=== PATIENT | female | born 1990 | race Caucasian/White ===

== ENCOUNTER → 2018-11-12 13:27 | Outpatient (CLI) | payer MEDICAID, SELFPAY ==
--- NOTE | 2018-11-12 14:44 | MM_ITS ---
MM Dig mamm DX unilat RT CAD, US breast RT complete INDICATION: Palpable lesion in the lower inner aspect of the right breast. ORDERING PHYSICIAN: [facility] PATIENT AGE: 28 years COMPARISON: None TECHNIQUE: Right mammogram with spot compression views and right breast ultrasound with axilla FINDINGS: Ultrasound initially performed demonstrates a 9 x 8 mm slightly hypoechoic nodule within the 5:00 region of the right breast. The nodule is homogeneous with some enhanced through transmission sound and may represent a fibroadenoma. The lateral pate are however somewhat ill-defined. Right-sided mammogram: Average to dense fibroglandular tissue noted. 8 mm somewhat ill-defined nodular opacity is noted in the lower aspect of the right breast at the region of the palpable abnormality. Is not well delineated on the cc view. No malignant appearing microcalcifications evident. IMPRESSION: There is a 9 x 8 mm hypoechoic nodule in the 5:00 region corresponding to the palpable abnormality. This is likely related to a fibroadenoma however, there are some atypical features. Therefore, biopsy is suggested. Suggest core biopsy with sonographic guidance BI-RADS Category: 4 Suspicious Abnormality-Biopsy Considered RECOMMENDED FOLLOW-UP: BIO - BIOPSY RECOMMENDED (A letter has been sent to the patient regarding results of the study.)
== END ==
PROVIDERS: Visit Provider Nurse Practitioner Obstetrics & Gynecology
DX: N63.10 Unspecified lump in the right breast, unspecified quadrant (principal)
CPT/HCPCS: 76641; 77065

== ENCOUNTER → 2018-11-25 17:40 | Outpatient (CLI) | payer MEDICAID, SELFPAY ==
[2018-11-25 17:52] LABS: Urine Pregnancy, HCG Qual. Negative (Negative)
== END ==
PROVIDERS: Visit Provider Surgery
DX: N63.10 Unspecified lump in the right breast, unspecified quadrant (principal)
CPT/HCPCS: 81025

== ENCOUNTER → 2018-11-27 09:33 | Outpatient (CLI) | payer MEDICAID, SELFPAY ==
--- NOTE | 2018-11-27 09:37 | US_ITS ---
FNA w guidance, US breast RT limited HISTORY: ITS.REASON: RT BREAST NODULE ORDERING PHYSICIAN: Mairo Stevens MD PATIENT AGE: 28 years COMPARISON: 11/12/2018 Prebiopsy ultrasound: Ultrasound performed of the area of interest demonstrates a 1 cm hypoechoic nodule which is once again noted with some enhanced through transmission of sound. Biopsy planning was performed TECHNIQUE: Following obtaining informed consent, using aseptic technique and local anesthesia with buffered lidocaine, fine-needle aspiration was performed of the nodule of interest using sonographic guidance. One pass was made into the nodule with a 25-gauge needle and 2 passes with a 21-gauge needle. Specimen was given to cytology. The patient tolerated the procedure well without evidence of immediate complications and left the ultrasound suite in stable condition. CYTOLOGY:Adipose tissue only, negative for malignant cells IMPRESSION: FNA of the right breast nodule is negative for malignancy. Adipose tissue only identified. Suggest 3-6 month sonographic follow-up to confirm short-term stability
== END ==
PROVIDERS: PCP Nurse Practitioner Obstetrics & Gynecology; Visit Provider Surgery
DX: N63.10 Unspecified lump in the right breast, unspecified quadrant (principal)
CPT/HCPCS: 10005; 76642

== ENCOUNTER → 2019-02-19 17:53 | Outpatient (CLI) | payer MEDICAID, SELFPAY ==
[2019-02-19 18:08] LABS: Basophils % 0.4 % (0.1-2.0); Eosinophils # 0.1 K/mm3 (0.0-0.4); Eosinophils % 1.3 % (0.1-12.0); Hematocrit 42.9 % (37.0-47.0); Hemoglobin 14.7 g/dL (12.2-16.2); Lymphocytes # 2.3 K/mm3 (0.7-4.5); Lymphocytes % 23.6 % (10-50); Mean Corpuscular HGB Conc 34.4 g/dL (31.8-35.4); Mean Corpuscular Hemoglobin 29.7 pg (27.0-31.2); Mean Corpuscular Volume 86.3 fl (81-99); Mean Platelet Volume 6.5 fl (7.4-10.4); Monocytes # 0.5 K/mm3 (0.1-1.0); Monocytes % 4.8 % (1.7-9.3); Neutrophils # 6.9 K/mm3 (1.8-7.8); Neutrophils % 69.9 % (37.0-80.0); Platelet Count 264 K/mm3 (142-424); Red Blood Count 4.97 M/mm3 (4.20-5.40); Red Cell Distribution Width 12.8 % (11.5-17.5); White Blood Count 9.9 K/mm3 (4.8-10.8)
[2019-02-19 20:01] LABS: Alanine Aminotransferase 25 U/L (12-78); Albumin Level 4.4 gm/dL (3.4-5.0); Albumin/Globulin Ratio 1.3 (1.1-1.8); Alkaline Phosphatase 54 U/L (46-116); Aspartate Amino Transferase 9 U/L (15-37); Bilirubin,Total 0.4 mg/dL (0.2-1.0); Blood Urea Nitrogen 17 mg/dL (7-18); Calcium 9.7 mg/dL (8.5-10.1); Carbon Dioxide 29 mmol/L (21.0-32.0); Chloride 104 mmol/L (98-107); Creatinine,Serum 0.85 mg/dL (0.55-1.02); Estimated Glomerular Filt Rate 81 ml/min (>60); GFR (African American) 98 ML/MIN (>60); Globulin 3.5 gm/dl (1.3-3.2); Glucose 72 mg/dL (74-106); Sodium 142 mmol/L (136-145); T4 (Thyroxine) 8.1 ug/dl (4.7-13.3); Thyroid Stimulating Hormone 0.54 uIU/ml (0.358-3.740); Total Protein,Serum 7.9 gm/dL (6.4-8.2)
[2019-02-21 17:57] LABS: Peripheral Smear Review Scanned Result
== END ==
PROVIDERS: Visit Provider Nurse Practitioner Family
DX: E04.9 Nontoxic goiter, unspecified (principal); R59.0 Localized enlarged lymph nodes
CPT/HCPCS: 36415; 80053; 84436; 84443; 85025

== ENCOUNTER → 2019-03-21 12:54 | Outpatient (CLI) | payer MEDICAID, SELFPAY ==
--- NOTE | 2019-03-21 13:01 | US_ITS ---
Nodule mid polar region HISTORY: Enlarged thyroid gland, hair loss ITS.REASON: thyroiod enlarg. ORDERING PHYSICIAN: Amrit Quinones MD PATIENT AGE: 28 years Comparison: None FINDINGS: The isthmus measures 3 mm in thickness. There is an isoechoic nodule in the right aspect of the isthmus at 5 mm. The right lobe is 4.5 x 1.3 x 1.6 cm with a mixed echogenic nodule medially at 7 mm. This is towards the isthmus. 5 x 4 mm isoechoic nodule upper pole I so slightly hypoechoic nodule upper pole at 11 x 8 mm. 14 mm isoechoic nodule upper pole posteriorly. Isoechoic nodule mid pole at 13 x 10 mm Isoechoic nodule midpole 9 x 6 mm 9 x 5 mm isoechoic lower pole The left lobe is 4.6 x 1.3 x 1.9 cm. There are multiple nodules present with the largest nodule in the mid polar region at 2.3 x 1 cm with some central cystic changes. Other smaller nodules are present which are hypoechoic and 5 mm or less. IMPRESSION: Bilateral thyroid nodules with enlarged thyroid gland. Nodules measure up to 1.3 x 1 cm on the right and 2.3 x 1 cm on the left
--- NOTE | 2019-03-21 13:01 | CT_ITS ---
CT sinus wo con CLINICAL INDICATION: Sinus headache, frontal sinus pressure ITS.REASON: frontal sinusitis ORDERING PHYSICIAN: Amrit Quinones MD PATIENT AGE: 28 years COMPARISON: None TECHNIQUE:Axial images obtained with sagittal and coronal reformats. All CT scans at the facility use one or more dose reduction, viz: automated exposure control, ma/kV adjustment per patient size (including targeted exams where dose is matched to indication, i.e. head), or iterative reconstruction technique. FINDINGS: There is mild mucosal thickening involving the left mid ethmoid air cells. The frontal sinus, maxillary sinuses, and sphenoid sinus has an unremarkable appearance. There is mild rightward nasal septal deviation. The ostiomeatal complexes are patent. Mastoid sinuses are unremarkable in the middle ears are well aerated. The orbits and temporal mandibular joints are unremarkable. No bony destructive process. No fracture or dislocation. IMPRESSION: 1. Mild left ethmoid sinus disease. 2. Mild rightward nasal septal deviation
== END ==
PROVIDERS: PCP Nurse Practitioner Family; Visit Provider Otolaryngology
DX: J32.1 Chronic frontal sinusitis (principal); J34.2 Deviated nasal septum; R59.0 Localized enlarged lymph nodes
CPT/HCPCS: 70486; 76536

== ENCOUNTER → 2019-04-22 12:42 | Outpatient (CLI) | payer MEDICAID, SELFPAY ==
--- NOTE | 2019-04-22 12:44 | US_ITS ---
US FNA Thyroid HISTORY: Dominant complex thyroid nodule on the left ORDERING PHYSICIAN: Amrit Quinones MD PATIENT AGE: 28 years COMPARISON: None TECHNIQUE: Following obtaining informed consent, using aseptic technique and local anesthesia with buffered lidocaine, fine-needle aspiration was performed of the dominant complex cystic nodule in the left lobe of the thyroid gland of interest using sonographic guidance. 3 passes were made into the nodule with a 25-gauge needle. Specimen was given to cytology. The patient tolerated the procedure well without evidence of immediate complications and left the ultrasound suite in stable condition. CYTOLOGY:Negative for malignancy IMPRESSION: Uneventful and successful sonographic guided needle aspiration of the left lobe of the thyroid gland showing benign findings
== END ==
PROVIDERS: PCP Nurse Practitioner Family; Visit Provider Otolaryngology
DX: E04.1 Nontoxic single thyroid nodule (principal)
CPT/HCPCS: 10005; 76536; 76942

== ENCOUNTER → 2019-05-14 10:00 | Outpatient (CLI) | payer MEDICAID, SELFPAY ==
[2019-05-15 18:23] LABS: Thyroid Peroxidase Antibodies 11 IU/mL (0-34)
[2019-05-16 17:13] LABS: Calcitonin <2.0 pg/mL (0.0-5.0); Thyroid Stimulating Immunoglob <0.10 IU/L (0.00-0.55)
== END ==
PROVIDERS: Visit Provider Otolaryngology
DX: E04.1 Nontoxic single thyroid nodule (principal)
CPT/HCPCS: 36415; 82308; 84445; 86376

== ENCOUNTER → 2019-05-27 18:02 | Outpatient (CLI) | payer MEDICAID, SELFPAY ==
[2019-05-27 18:47] LABS: Basophils # 0.1 K/mm3 (0-0.2); Basophils % 0.7 % (0.1-2.0); Eosinophils # 0.1 K/mm3 (0.0-0.4); Eosinophils % 0.8 % (0.1-12.0); Hematocrit 42.3 % (37.0-47.0); Lymphocytes # 2.3 K/mm3 (0.7-4.5); Mean Corpuscular Hemoglobin 27.9 pg (27.0-31.2); Mean Corpuscular Volume 84.3 fl (81-99); Monocytes # 0.6 K/mm3 (0.1-1.0); Monocytes % 6.9 % (1.7-9.3); Neutrophils # 5.5 K/mm3 (1.8-7.8); Neutrophils % 64.6 % (37.0-80.0); Platelet Count 263 K/mm3 (142-424); Red Blood Count 5.02 M/mm3 (4.20-5.40); Red Cell Distribution Width 12.8 % (11.5-17.5); White Blood Count 8.4 K/mm3 (4.8-10.8)
[2019-05-27 19:13] LABS: Alanine Aminotransferase 26 U/L (12-78); Albumin Level 4.1 gm/dL (3.4-5.0); Albumin/Globulin Ratio 1.1 (1.1-1.8); Alkaline Phosphatase 57 U/L (46-116); Anion Gap 15.1 mEq/L (5-15); Aspartate Amino Transferase 13 U/L (15-37); Bilirubin,Total 0.4 mg/dL (0.2-1.0); Blood Urea Nitrogen 12 mg/dL (7-18); Calcium 9.4 mg/dL (8.5-10.1); Carbon Dioxide 27 mmol/L (21.0-32.0); Chloride 102 mmol/L (98-107); Creatinine,Serum 0.94 mg/dL (0.55-1.02); Estimated Glomerular Filt Rate 72 ml/min (>60); GFR (African American) 87 ML/MIN (>60); Globulin 3.6 gm/dl (1.3-3.2); Glucose 85 mg/dL (74-106); Potassium 4.1 mmoL/L (3.5-5.1); Sodium 140 mmol/L (136-145); T4 (Thyroxine) 8.3 ug/dl (4.7-13.3); Thyroid Stimulating Hormone 1.03 uIU/ml (0.358-3.740); Total Protein,Serum 7.7 gm/dL (6.4-8.2)
[2019-05-27 19:56] LABS: Erythrocyte Sedimentation Rate 13 mm/hr (0-20)
[2019-05-29 08:22] LABS: Vitamin B12 333 pg/mL (232-1245); Vitamin D 25 Hydroxy 20.6 ng/mL (30.0-100.0)
== END ==
PROVIDERS: Visit Provider Emergency Medicine
DX: R55 Syncope and collapse (principal); E55.9 Vitamin D deficiency, unspecified
CPT/HCPCS: 80053; 82607; 82652; 84436; 84443; 85025; 85651

== ENCOUNTER → 2019-05-29 13:06 | Outpatient (CLI) | payer MEDICAID, SELFPAY | PROVIDERS: PCP Emergency Medicine; Visit Provider Emergency Medicine | DX: R55 Syncope and collapse (principal) | CPT/HCPCS: 93225; 93226 ==

== ENCOUNTER → 2019-06-24 10:33 | Outpatient (POV) | payer MEDICAID, SELFPAY | PROVIDERS: Visit Provider Otolaryngology | DX: Z00.00 Encounter for general adult medical examination without abnormal findings (principal) ==

== ENCOUNTER → 2019-08-19 17:37 | Outpatient (CLI) | payer MEDICAID, SELFPAY | PROVIDERS: Visit Provider Nurse Practitioner Family | DX: B07.9 Viral wart, unspecified (principal) | CPT/HCPCS: 87070; 87077; 87186; 87205 ==

== ENCOUNTER → 2019-08-20 14:59 | Outpatient (CLI) | payer MEDICAID, SELFPAY ==
--- NOTE | 2019-08-20 15:02 | US_ITS ---
PROCEDURE: US BREAST RT COMPLETE CLINICAL INDICATION: 6 mo fu COMPARISON: BREASTRT US breast RT complete from 11/12/2018 FNAWGUS FNA w guidance from 11/27/2018 FINDINGS: There remains a hypoechoic nodule measuring 12 x 11 mm mm at the 5 o'clock region of the right breast. FNA was performed of this nodule which was negative for malignant cells. The nodule may be very slightly larger measuring 12 x 11 mm previously measuring 11 x 10 mm. Would recommend re-biopsy with pathologist present for definitive diagnosis. IMPRESSION: Hypoechoic nodule at 5 o'clock region of the right breast. The nodule is slightly taller than wide and may have slightly increased in size. Suggest repeat biopsy with pathologist present to assure adequate tissue obtained. Dictated by: Uche Denise MD 08/29/2019 09:21 Electronically signed by Uche Denise MD in [place] 08/29/2019 09:21
== END ==
PROVIDERS: PCP Emergency Medicine; Visit Provider Surgery
DX: N63.13 Unspecified lump in the right breast, lower outer quadrant (principal)
CPT/HCPCS: 76641

== ENCOUNTER → 2019-09-17 12:51 | Outpatient (CLI) | payer MEDICAID, SELFPAY ==
--- NOTE | 2019-09-17 12:53 | US_ITS ---
PROCEDURE: US FNA BREAST CLINICAL INDICATION: Follow-up abnormal ultrasound COMPARISON: FNAWGUS FNA w guidance from 11/27/2018 US BREAST RT COMPLETE from 08/20/2019 FINDINGS: Following obtaining informed consent under aseptic conditions and local anesthesia with 1 percent buffered lidocaine 3 passes were made into the nodule of interest under sonographic guidance. Pathologist was present and confirmed tissue. Cytology, negative for malignancy, scant mature adipose, negative for ductal cells IMPRESSION: Successful sonographic guided fine needle aspiration of the right breast showing benign findings. Recommend six-month sonographic follow-up Dictated by: Uche Denise MD 09/22/2019 22:10 Electronically signed by Uche Denise MD in [place] 09/22/2019 22:10
== END ==
PROVIDERS: PCP Emergency Medicine; Visit Provider Surgery
DX: N63.13 Unspecified lump in the right breast, lower outer quadrant (principal)
CPT/HCPCS: 10005; 76942

== ENCOUNTER → 2020-03-24 12:31 | Outpatient (CLI) | payer MEDICAID, SELFPAY ==
--- NOTE | 2020-03-24 12:31 | US_ITS ---
PROCEDURE: US BREAST RT COMPLETE CLINICAL INDICATION: rt breast mass The follow-up breast nodule COMPARISON: BREASTRT US breast RT complete from 11/12/2018 FNAWGUS FNA w guidance from 11/27/2018 US FNA BREAST from 09/17/2019 FINDINGS: There is persistent rounded area of decreased echogenicity in the 5 o'clock region of the right breast near the nipple. There is a thin linear area of increased echogenicity within this nodule. This has not significantly changed dating back to 11/22/2018 possibly due to small fibroadenoma. FNA of this nodule with a negative for malignant cells. IMPRESSION: BI-RADS category 2 benign appearing nodule in the 5 o'clock region of the right breast stable for over 1 year. Recommend continued annual follow-up Dictated by: Uche Denise MD 03/24/2020 18:24 Electronically signed by Uche Denise MD in [place] 03/24/2020 18:24
== END ==
PROVIDERS: PCP Nurse Practitioner Family; Visit Provider Surgery
DX: N63.10 Unspecified lump in the right breast, unspecified quadrant (principal)
CPT/HCPCS: 76641

== ENCOUNTER → 2020-04-20 11:06 | Outpatient (POV) | payer MEDICAID, SELFPAY ==
[2020-04-20 13:06] LABS: T4 (Thyroxine) 8.5 ug/dl (5.53-11.0)
[2020-04-20 13:19] LABS: Thyroid Stimulating Hormone 0.71 uIU/mL (0.465-4.68)
== END ==
PROVIDERS: PCP Nurse Practitioner Family; Visit Provider Otolaryngology
DX: E04.1 Nontoxic single thyroid nodule (principal)
CPT/HCPCS: 36415; 84436; 84443

== ENCOUNTER → 2020-04-21 13:32 | Outpatient (CLI) | payer MEDICAID, SELFPAY ==
--- NOTE | 2020-04-21 13:32 | US_ITS ---
PROCEDURE: US BREAST LT COMPLETE CLINICAL INDICATION: lump COMPARISON: US BREAST RT COMPLETE from 03/24/2020 FINDINGS: No cystic or solid breast mass is evident. There are few small nodes in the axilla which are nonspecific IMPRESSION: Negative left breast ultrasound Dictated by: Uche Denise MD 04/23/2020 10:36 Electronically signed by Uche Denise MD in [place] 04/23/2020 10:36
== END ==
PROVIDERS: PCP Nurse Practitioner Family; Visit Provider Surgery
DX: N63.20 Unspecified lump in the left breast, unspecified quadrant (principal)
CPT/HCPCS: 76641

== ENCOUNTER → 2020-05-28 13:14 | Outpatient (CLI) | payer MEDICAID, SELFPAY ==
--- NOTE | 2020-05-28 13:22 | US_ITS ---
PROCEDURE: US THYROID CLINICAL INDICATION: THYROID NODULE Follow-up thyroid nodules COMPARISON: FNAWGUS FNA w guidance from 11/27/2018 THY US thyroid from 03/21/2019 FNATHY US FNA Thyroid from 04/22/2019 US FNA BREAST from 09/17/2019 FINDINGS: The isthmus measures up to 3 mm. There is a 4 mm nodule in the right aspect of the isthmus and a 3 mm nodule in the left aspect of the isthmus The right lobe is 4.5 x 1.4 x 1.7 cm with multiple nodules noted including a 13 mm spongiform nodule in the upper pole not significantly changed. A mix 16 mm nodule is present in the upper to mid polar region unchanged. A 10 mm spongiform nodule in the mid polar region unchanged. 8 mm slightly hypoechoic nodule mid polar region unchanged The left lobe is 4.6 x 1.7 x 1.9 cm. A mixed cystic and solid nodules present in the mid polar region on the left at 2.3 x 1.5 cm previously 2.3 x 1 cm. There is some increase in cystic component of this nodule this. This nodule has been previously biopsied and was negative for malignancy. IMPRESSION: Multinodular goiter as described above. Dictated by: Uche Denise MD 05/28/2020 16:33 Electronically signed by Uche Denise MD in [place] 05/28/2020 16:33
== END ==
PROVIDERS: PCP Nurse Practitioner Family; Visit Provider Otolaryngology
DX: E04.1 Nontoxic single thyroid nodule (principal)
CPT/HCPCS: 76536

== ENCOUNTER → 2020-09-01 15:01 | Outpatient (CLI) | payer MEDICAID, SELFPAY ==
[2020-09-01 16:25] LABS: Alanine Aminotransferase 44 U/L (12-78); Albumin Level 4.4 g/dl (3.5-5.0); Albumin/Globulin Ratio 1.5 (1.1-1.8); Alkaline Phosphatase 72 U/L (38-126); Anion Gap 14.4 mEq/L (5-15); Aspartate Amino Transferase 30 U/L (14-36); Bilirubin,Total 0.2 mg/dl (0.2-1.3); Blood Urea Nitrogen 12 mg/dl (7-17); Calcium 9.5 mg/dl (8.4-10.2); Carbon Dioxide 28 mmol/L (22.0-30.0); Chloride 103 mmol/L (98-107); Estimated Glomerular Filt Rate 75 ml/min (>60); GFR (African American) 90 ML/MIN (>60); Glucose 91 mg/dl (74-100); Potassium 4.4 mmoL/L (3.5-5.1); Sodium 141 mmol/L (136-145); Total Protein,Serum 7.4 g/dl (6.3-8.2)
[2020-09-03 17:31] LABS: Deamidated Gliadin Abs, IgA 5 units (0-19); Deamidated Gliadin Abs, IgG 3 units (0-19); Tissue Transglutaminase IgA Ab <2 U/mL (0-3); Tissue Transglutaminase IgG Ab <2 U/mL (0-5)
[2020-09-03 17:32] LABS: Endomysial IgA Antibody Negative (Negative)
[2020-09-04 17:46] LABS: Reticulin IgA Antibody Negative titer (Neg:<1:2.5)
[2020-09-08 03:13] LABS: Saccharomyces cerevisiae, IgA 23.7 Units (0.0-24.9); Saccharomyces cerevisiae, IgG <20.0 Units (0.0-24.9)
== END ==
PROVIDERS: Visit Provider Nurse Practitioner Family
DX: R10.9 Unspecified abdominal pain (principal); R19.4 Change in bowel habit; R19.7 Diarrhea, unspecified; R14.0 Abdominal distension (gaseous)
CPT/HCPCS: 36415; 80053; 83516; 86255; 86256; 86671

== ENCOUNTER → 2020-11-17 18:32 | Outpatient (CLI) | payer MEDICAID, SELFPAY ==
[2020-11-17 19:06] LABS: Basophils # 0.1 K/mm3 (0-0.2); Basophils % 0.6 % (0.1-2.0); Eosinophils # 0.1 K/mm3 (0.0-0.4); Eosinophils % 0.9 % (0.1-12.0); Hematocrit 47.2 % (37.0-47.0); Hemoglobin 15.3 g/dL (12.2-16.2); Lymphocytes % 20.9 % (10-50); Mean Corpuscular HGB Conc 32.3 g/dL (31.8-35.4); Mean Corpuscular Hemoglobin 29.4 pg (27.0-31.2); Mean Corpuscular Volume 90.9 fl (81-99); Mean Platelet Volume 7.7 fl (7.4-10.4); Monocytes # 0.4 K/mm3 (0.1-1.0); Monocytes % 4.6 % (1.7-9.3); Neutrophils # 6.9 K/mm3 (1.8-7.8); Platelet Count 292 K/mm3 (142-424); Red Cell Distribution Width 14.2 % (11.5-17.5); White Blood Count 9.5 K/mm3 (4.8-10.8)
[2020-11-17 19:13] LABS: Alanine Aminotransferase 36 U/L (12-78); Albumin Level 4.7 g/dl (3.5-5.0); Albumin/Globulin Ratio 1.4 (1.1-1.8); Alkaline Phosphatase 78 U/L (38-126); Anion Gap 13.6 mEq/L (5-15); Aspartate Amino Transferase 29 U/L (14-36); Bilirubin,Total 0.5 mg/dl (0.2-1.3); Blood Urea Nitrogen 17 mg/dl (7-17); Calcium 10.4 mg/dl (8.4-10.2); Carbon Dioxide 30 mmol/L (22.0-30.0); Chloride 99 mmol/L (98-107); Chol/HDL Ratio 6.4 (1-3.5); Cholesterol 205 mg/dl (140-200); Estimated Glomerular Filt Rate 85 ml/min (>60); GFR (African American) 103 ML/MIN (>60); Globulin 3.4 g/dL (1.3-3.2); Glucose 93 mg/dl (74-100); HDL Cholesterol 32 mg/dl (40-60); Potassium 4.6 mmoL/L (3.5-5.1); Sodium 138 mmol/L (136-145); Total Protein,Serum 8.1 g/dl (6.3-8.2); Triglycerides 370 mg/dl (30-150); VLDL Cholesterol 74 mg/dL (0-40)
[2020-11-17 19:25] LABS: Direct LDL Cholesterol 117.98 mg/dL (100-129)
[2020-11-17 19:27] LABS: 25-OH Vitamin D, Total 21.1 ng/mL (30-100)
[2020-11-17 19:33] LABS: T4 (Thyroxine) 7.9 ug/dl (5.53-11.0)
[2020-11-17 19:46] LABS: Thyroid Stimulating Hormone 0.85 uIU/mL (0.465-4.68)
[2020-11-17 20:05] LABS: Vitamin B12 427 pg/mL (239-931)
[2020-11-19 10:05] LABS: Progesterone 0.2 ng/mL (.)
[2020-11-22 09:41] LABS: Estrogen 129 pg/mL (.)
== END ==
PROVIDERS: Visit Provider Nurse Practitioner Family
DX: Z00.00 Encounter for general adult medical examination without abnormal findings (principal); E55.9 Vitamin D deficiency, unspecified; Z79.899 Other long term (current) drug therapy
CPT/HCPCS: 80053; 80061; 82306; 82607; 82672; 83036; 84144; 84436; 84443; 85025

== ENCOUNTER → 2021-01-05 13:33 | Outpatient (CLI) | payer MEDICAID, SELFPAY ==
[2021-01-05 14:09] LABS: Urine Pregnancy, HCG Qual. Negative (Negative)
[2021-01-05 18:20] LABS: Coronavirus 19 IgG Antibody Negative (Negative); Coronavirus 19 IgM Antibody Negative (Negative)
== END ==
PROVIDERS: Visit Provider Internal Medicine Gastroenterology
DX: Z01.818 Encounter for other preprocedural examination (principal); Z20.822 Contact with and (suspected) exposure to COVID-19; Z12.11 Encounter for screening for malignant neoplasm of colon; R19.7 Diarrhea, unspecified
CPT/HCPCS: 36415; 81025; 86328

== ENCOUNTER 2021-01-07 10:19 | Day surgery (SDC) | payer MEDICAID, SELFPAY ==
[2020-12-30 10:45] VITALS: BMI 39.6
[2021-01-07] VITALS (7 sets, daily range): BP systolic 113–138; BP diastolic 62–93; PULSE 72–95; RESP 18; TEMP 36.3–36.6; O2SAT 95–99
--- NOTE | 2021-01-07 11:38 | P.PN_ITS ---
[facility] Anesthesia Checklist - Patient Identification Patient Identification: Verbal (Name & ) - Structural Data Admitted From: Home Planned Operative Procedure/s: colonoscopy Consent for Planned Operative Procedure(s) Verified: Yes Verified Documents: Surgical Consent, History and Physical - NPO Status Verified Time NPO: 00:00 - Cardiovascular Assessment Heart Sounds: S1 & S2 Pulse Rhythm: Regular - Airway Assessment C-Spine Mobility Assessed: Yes TMJ Mobility Assessed: Yes Dentition: Good Dentition - Neurological Assessment Level of Consciousness: Awake - Anesthesia Plan Anesthesia Risk discussed: Yes ASA Class: II Anesthesia Type: MAC [facility] History I have reviewed the patient's past medical history: Yes Medical History: Reports:: Anxiety, Depression Denies:: Cancer, Diabetes Mellitus Type 1, Diabetes Mellitus Type 2, Internal Pacemaker, MRSA, Seizures *Have you ever received a pneumonia vaccine?: No *Have you received a flu vaccine this season?: No Other Medical History: Reports: Other Anesthesia experience/problems:: none Laterality Cases: Right: Breast Biopsy Other Surgeries: Yes: , Other. No: Pacemaker Amputation: No Fractures: No - *Social History Last grade of school completed: Advanced degree Smoking Status: Former smoker Tobacco Type: cigarettes # Packs/Day (cigarettes): 1 #Yrs smoked (if former smoker): 7 Alcohol Intake: never Substance Use Type: denies use *Occupational Status:: employed Housing: house Household Members: family *Travel in the last 8 weeks: None - Psychiatric History Pschychiatric History:: Reports:: Anxiety, Depression Family Hx:: Cancer, Diabetes, Hypertension
--- NOTE | 2021-01-07 11:58 | HMH.PROC ---
[facility] Procedure Note Procedure Note:: Colonoscopy Procedure Report: Colonoscopy Endoscopist: Lee Maki II, MD Referring physician: BRIANNA Mtz Date of Procedure: January 07, 2021 Equipment: Olympus 180 variable stiffness pediatric colonoscope Sedation: MAC sedation Indication: Mrs. Giles is a 30-year-old female with a change in bowel habits since May 2020 and she is here for diagnostic colonoscopy. She has had bloating, gassiness and loose or mushy stools every time she has a bowel movement. She does report some cramps and urgency. After a bowel movement her cramps do resolved. She was diagnosed with a wheat allergy. She did not have any improvement with diet, probiotic and fiber bowel regimen (combined MiraLAX plus Metamucil). Her labs showed normal celiac and IBD serologies. She does report bloating and gassiness. Procedure: Prior to the procedure, a history and physical exam was performed, and patient's medications and allergies were reviewed. The risks, benefits and alternatives of the sedation and procedure were discussed with the patient. All questions were answered and informed consent was obtained. The patient was brought to the procedure room. Patient identification and proposed procedure were verified by the physician and the nurse. The patient was placed in a left lateral decubitus position and the scope was passed under direct vision. Throughout the procedure, the patient's blood pressure, pulse, and oxygen saturations were monitored continuously. The colonoscopy was accomplished without difficulty. The patient tolerated the procedure well. Findings: On digital rectal examination there was normal rectal tone. There were no external hemorrhoids. The colonoscope was introduced through the anal canal to the rectum and advanced to the cecum. The ileocecal valve and appendiceal orifice were identified. The scope was advanced a short distance into the ileum which appeared grossly normal. The scope was then withdrawn into the colon. The cecum, ascending, transverse, descending, sigmoid and rectum were grossly normal. There were no mucosal abnormalities identified. Upon retroflexion within the rectum there were grade 1 internal hemorrhoids.The preparation was excellent throughout with [place] Preparation Score of 9. The cecal time was 12 minutes. Impression: 1. Normal colonoscopy with intubation of the terminal ileum 2. Grade 1 internal hemorrhoids Plan: I do feel that the patient has IBS diarrhea. We will discuss additional treatment options (dicyclomine versus Viberzi). I would reiterate dietary measures and recommend bulk fiber (FiberCon) plus IBgard. I would also recommend C 13 sucrose breath testing in 8 to 10 weeks.
== END 2021-01-07 12:45 | disposition home or self-care (01) ==
LOC: OUTP 10:20
PROVIDERS: PCP Nurse Practitioner Family; Visit Provider Internal Medicine Gastroenterology
PROC: 0DJD8ZZ Inspection of Lower Intestinal Tract, Via Natural or Artificial Opening Endoscopic (ICD-10-PCS; CPT 45378; principal; 2021-01-07 11:30)
DX: K64.0 First degree hemorrhoids (principal); R14.0 Abdominal distension (gaseous); R19.4 Change in bowel habit; R19.7 Diarrhea, unspecified; F41.9 Anxiety disorder, unspecified; F32.9 Major depressive disorder, single episode, unspecified; Z80.9 Family history of malignant neoplasm, unspecified; Z83.3 Family history of diabetes mellitus; Z82.49 Family history of ischemic heart disease and other diseases of the circulatory system; Z88.6 Allergy status to analgesic agent; Z79.899 Other long term (current) drug therapy
CPT/HCPCS: 45378

== ENCOUNTER → 2021-02-08 12:30 | Outpatient (CLI) | payer MEDICAID, SELFPAY ==
[2021-02-08 15:04] LABS: Thyroid Stimulating Hormone 0.51 uIU/mL (0.465-4.68)
[2021-02-09 10:23] LABS: Testosterone,Total 28 ng/dL (8-48)
[2021-02-09 17:22] LABS: LH 3.8 mIU/mL (.)
[2021-02-09 17:23] LABS: FSH 1.9 mIU/mL (.); Progesterone 7.2 ng/mL (.)
== END ==
PROVIDERS: Visit Provider Obstetrics & Gynecology
DX: R09.89 Other specified symptoms and signs involving the circulatory and respiratory systems (principal)
CPT/HCPCS: 36415; 82670; 83001; 83002; 84144; 84403; 84443

== ENCOUNTER → 2021-02-25 14:50 | Outpatient (CLI) | payer MEDICAID, SELFPAY ==
[2021-02-25 15:26] LABS: Basophils # 0.1 K/mm3 (0-0.2); Basophils % 0.8 % (0.1-2.0); Eosinophils # 0.2 K/mm3 (0.0-0.4); Eosinophils % 2.3 % (0.1-12.0); Hematocrit 43.3 % (37.0-47.0); Hemoglobin 14.2 g/dL (12.2-16.2); Lymphocytes # 2.2 K/mm3 (0.7-4.5); Lymphocytes % 24.9 % (10-50); Mean Corpuscular HGB Conc 32.8 g/dL (31.8-35.4); Mean Corpuscular Volume 88.3 fl (81-99); Monocytes # 0.4 K/mm3 (0.1-1.0); Monocytes % 4.6 % (1.7-9.3); Neutrophils # 5.8 K/mm3 (1.8-7.8); Neutrophils % 67.5 % (37.0-80.0); Platelet Count 294 K/mm3 (142-424); Red Cell Distribution Width 13.9 % (11.5-17.5); White Blood Count 8.6 K/mm3 (4.8-10.8)
[2021-02-25 16:06] LABS: Chloride 101 mmol/L (98-107); Sodium 138 mmol/L (136-145)
[2021-02-25 16:07] LABS: Potassium 4.3 mmoL/L (3.5-5.1)
[2021-02-25 16:09] LABS: Alanine Aminotransferase 36 U/L (12-78); Albumin Level 4.9 g/dl (3.5-5.0); Albumin/Globulin Ratio 1.7 (1.1-1.8); Alkaline Phosphatase 69 U/L (38-126); Anion Gap 16.3 mEq/L (5-15); Aspartate Amino Transferase 30 U/L (14-36); Bilirubin,Total 0.5 mg/dl (0.2-1.3); Blood Urea Nitrogen 11 mg/dl (7-17); Carbon Dioxide 25 mmol/L (22.0-30.0); Cholesterol 264 mg/dl (140-200); Estimated Glomerular Filt Rate 100 ml/min (>60); GFR (African American) 121 ML/MIN (>60); Globulin 2.9 g/dL (1.3-3.2); Total Protein,Serum 7.8 g/dl (6.3-8.2); Triglycerides 360 mg/dl (30-150); VLDL Cholesterol 72 mg/dL (0-40)
[2021-02-25 16:10] LABS: Chol/HDL Ratio 5.9 (1-3.5); Glucose 118 mg/dl (74-100); HDL Cholesterol 45 mg/dl (40-60)
[2021-02-25 16:21] LABS: Direct LDL Cholesterol 164.16 mg/dL (100-129)
[2021-02-25 16:29] LABS: Free T4 (Free Thyroxine) 0.84 ng/dl (0.78-2.19)
[2021-02-25 16:30] LABS: T4 (Thyroxine) 8.1 ug/dl (5.53-11.0)
[2021-02-25 16:32] LABS: 25-OH Vitamin D, Total 23.3 ng/mL (30-100)
== END ==
PROVIDERS: Otolaryngology; Visit Provider Nurse Practitioner Family
DX: E78.00 Pure hypercholesterolemia, unspecified (principal); E66.01 Morbid (severe) obesity due to excess calories; E55.9 Vitamin D deficiency, unspecified
CPT/HCPCS: 36415; 80053; 80061; 82306; 84436; 84439; 84443; 85025

== ENCOUNTER → 2021-03-09 13:36 | Outpatient (CLI) | payer MEDICAID, SELFPAY ==
[2021-03-09 14:07] LABS: Hemoglobin A1C 5.2 % (4.0-6.0)
== END ==
PROVIDERS: Visit Provider Nurse Practitioner Family
DX: R73.09 Other abnormal glucose (principal)
CPT/HCPCS: 36415; 83036

== ENCOUNTER → 2021-04-11 13:58 | Outpatient (CLI) | payer MEDICAID, SELFPAY ==
--- NOTE | 2021-04-11 13:58 | US_ITS ---
PROCEDURE: US BREAST RT COMPLETE CLINICAL INDICATION: Mass Follow-up breast lesion COMPARISON: US US FNA BREAST from 09/17/2019 US US BREAST LT COMPLETE from 04/21/2020 FINDINGS: Scattered fibroglandular elements are present as before. At 5 o'clock there is a rounded area of decreased echogenicity similar to the previous exams measuring approximately 1.2 by 1 cm. Enlarged nodes are present in the right axilla measuring up to 4 by 1.2 cm. IMPRESSION: Stable hypoechoic nodular area of the right breast. Right axillary adenopathy Dictated by: Uche Denise MD 04/15/2021 13:06 Uche Denise MD in [place] 04/15/2021 13:06
== END ==
PROVIDERS: PCP Nurse Practitioner Family; Visit Provider Surgery
DX: N63.10 Unspecified lump in the right breast, unspecified quadrant (principal)
CPT/HCPCS: 76641

== ENCOUNTER → 2021-04-14 09:13 | Outpatient (CLI) | payer MEDICAID, SELFPAY ==
[2021-04-14 09:52] LABS: COC Drug Screen Collection Only
[2021-04-15 09:18] LABS: Rubella Antibodies, IgG 1.67 index (Immune >0.99)
[2021-04-15 18:41] LABS: Varicella Zoster IgG <135 index (Immune >165)
== END ==
PROVIDERS: Visit Provider Nurse Practitioner Family
DX: Z02.0 Encounter for examination for admission to educational institution (principal)
CPT/HCPCS: 86735; 86762; 86765; 86787

== ENCOUNTER → 2021-07-26 10:15 | Outpatient (CLI) | payer MEDICAID, SELFPAY ==
[2021-07-26 13:36] LABS: HCG,Quantitative 48346 mIU/ml (0-5.42)
== END ==
PROVIDERS: Visit Provider Obstetrics & Gynecology
DX: Z34.90 Encounter for supervision of normal pregnancy, unspecified, unspecified trimester (principal)
CPT/HCPCS: 36415; 84702

== ENCOUNTER → 2021-07-28 13:50 | Outpatient (CLI) | payer MEDICAID, SELFPAY | PROVIDERS: Visit Provider Obstetrics & Gynecology | DX: Z34.90 Encounter for supervision of normal pregnancy, unspecified, unspecified trimester (principal) | CPT/HCPCS: 36415; 84702 ==

== ENCOUNTER → 2021-08-04 14:57 | Outpatient (CLI) | payer MEDICAID, SELFPAY ==
--- NOTE | 2021-08-04 14:57 | US_ITS ---
PROCEDURE: US OB <= 14 WEEKS FETUS CLINICAL INDICATION: dates COMPARISON: No exams were available for comparison FINDINGS: An intrauterine gestational sac is present with a pole with a crown-rump length of 2.14cm correlating to gestational age of 8weeks 6days. heart tones are present with an FHR of 174bpm. Yolk sac is noted. IMPRESSION: Live IUP at 8 weeks 6 days Estimated due date by Ultrasound is 03/10/2022 Dictated by: Uche Denise MD 08/04/2021 17:54 Uche Denise MD in [place] 08/04/2021 17:54
== END ==
PROVIDERS: PCP Physician Assistant; Visit Provider Obstetrics & Gynecology
DX: Z34.90 Encounter for supervision of normal pregnancy, unspecified, unspecified trimester (principal)
CPT/HCPCS: 76801

== ENCOUNTER → 2021-08-18 11:05 | Outpatient (CLI) | payer MEDICAID, SELFPAY ==
[2021-08-18 11:39] LABS: Basophils % 0.5 % (0.1-2.0); Eosinophils # 0.1 K/mm3 (0.0-0.4); Eosinophils % 0.7 % (0.1-12.0); Hematocrit 38.7 % (37.0-47.0); Hemoglobin 12.9 g/dL (12.2-16.2); Lymphocytes # 1.6 K/mm3 (0.7-4.5); Lymphocytes % 19.7 % (10-50); Mean Corpuscular HGB Conc 33.3 g/dL (31.8-35.4); Mean Corpuscular Hemoglobin 29.8 pg (27.0-31.2); Mean Corpuscular Volume 89.4 fl (81-99); Mean Platelet Volume 7.6 fl (7.4-10.4); Monocytes # 0.3 K/mm3 (0.1-1.0); Monocytes % 3.6 % (1.7-9.3); Neutrophils # 6.2 K/mm3 (1.8-7.8); Neutrophils % 75.5 % (37.0-80.0); Platelet Count 248 K/mm3 (142-424); Red Blood Count 4.33 M/mm3 (4.20-5.40); Red Cell Distribution Width 14.1 % (11.5-17.5); White Blood Count 8.2 K/mm3 (4.8-10.8)
[2021-08-18 12:45] LABS: Thyroid Stimulating Hormone 0.27 uIU/mL (0.465-4.68)
[2021-08-19 08:19] LABS: HIV Screen 4th Generation wRfx Non Reactive (Non Reactive)
[2021-08-19 09:29] LABS: Rubella Antibodies, IgG 1.42 index (Immune >0.99)
[2021-08-19 10:12] LABS: Hepatitis B Surface Antigen Negative (Negative); Hepatitis C Antibody <0.1 s/co ratio (0.0-0.9)
[2021-08-19 11:15] LABS: Rapid Plasma Reagin Ab Titer Non Reactive (NonRea<1:1)
== END ==
PROVIDERS: Visit Provider Obstetrics & Gynecology
DX: Z34.90 Encounter for supervision of normal pregnancy, unspecified, unspecified trimester (principal); R09.89 Other specified symptoms and signs involving the circulatory and respiratory systems
CPT/HCPCS: 36415; 84443; 85025; 86592; 86703; 86762; 86850; 87340; 87380; G0432

== ENCOUNTER 2021-08-22 11:16 | Outpatient (CLI) | payer MEDICAID, SELFPAY ==
[2021-08-22 11:35] VITALS: BP 128/73; PULSE 110; RESP 20; TEMP 36.4; O2SAT 97
[2021-08-22 12:05] VITALS: BP 125/79; PULSE 99; RESP 20; O2SAT 97
[2021-08-22 12:35] VITALS: BP 128/74; PULSE 84; RESP 20; O2SAT 97
== END 2021-08-22 12:42 | disposition home or self-care (01) ==
LOC: INF 11:18
PROVIDERS: PCP Nurse Practitioner Family; Visit Provider Obstetrics & Gynecology
DX: O21.9 Vomiting of pregnancy, unspecified (principal); Z3A.10 10 weeks gestation of pregnancy
CPT/HCPCS: 96360; 96375; J2405

== ENCOUNTER → 2021-08-24 15:10 | Outpatient (CLI) | payer MEDICAID, SELFPAY ==
[2021-08-24 17:51] LABS: Free T4 (Free Thyroxine) 0.97 ng/dl (0.78-2.19)
[2021-08-26 08:31] LABS: Triiodothyronine (T3) Free 3.8 pg/mL (2.0-4.4)
== END ==
PROVIDERS: Visit Provider Obstetrics & Gynecology
DX: R79.89 Other specified abnormal findings of blood chemistry (principal)
CPT/HCPCS: 36415; 84439; 84481

== ENCOUNTER 2021-08-29 13:43 | Outpatient (CLI) | payer MEDICAID, SELFPAY ==
[2021-08-29 14:00] VITALS: BP 126/85; PULSE 86; RESP 18; O2SAT 96
[2021-08-29 15:15] VITALS: BP 126/63; PULSE 85; RESP 18
== END 2021-08-29 15:15 | disposition home or self-care (01) ==
LOC: INF 13:44
PROVIDERS: PCP Nurse Practitioner Family; Visit Provider Obstetrics & Gynecology
DX: O21.9 Vomiting of pregnancy, unspecified (principal)
CPT/HCPCS: 96360; 96375; J2405

== ENCOUNTER 2021-09-02 11:27 | Outpatient (CLI) | payer MEDICAID, SELFPAY ==
[2021-09-02 12:00] VITALS: BP 135/81; PULSE 67; RESP 17; TEMP 36.7; O2SAT 98
[2021-09-02 13:00] VITALS: BP 131/75; PULSE 69; RESP 17; O2SAT 98
== END 2021-09-02 13:05 | disposition home or self-care (01) ==
LOC: INF 11:28
PROVIDERS: PCP Nurse Practitioner Family; Visit Provider Obstetrics & Gynecology
DX: O21.0 Mild hyperemesis gravidarum (principal); Z3A.13 13 weeks gestation of pregnancy
CPT/HCPCS: 96360; 96375; J2405

== ENCOUNTER → 2022-06-13 09:22 | Outpatient (CLI) | payer MEDICAID, SELFPAY ==
--- NOTE | 2022-06-13 09:23 | US_ITS ---
FINAL REPORT CLINICAL HISTORY: 2 year follow up thyroid nodules COMPARISON: 05/28/2020 FINDINGS: Sonographic images of the thyroid were obtained. The right lobe of the thyroid measures 4.5 x 1.6 x 2.2 cm. The left lobe of the thyroid measures 4.6 x 1.4 x 1.9 cm. Multiple nodules are identified. There is a mostly solid, hypoechoic nodule in the mid right thyroid lobe measuring 19 x 9 x 9 mm consistent with TI-RADS category 4. This is larger than previous. There is a 2nd nodule in the right mid thyroid lobe which is solid, hypoechoic with microcalcifications measuring 17 x 9 x 13 mm. This is also larger since the previous exam consistent with TI-RADS category 5. There is a 3rd right mid lobe nodule which is cystic and solid measuring 12 x 5 x 8 mm consistent with TI-RADS category 3. There is a nodule in the left mid thyroid lobe which is cystic and solid measuring 17 x 12 x 11 mm consistent with TI-RADS category 3. This nodule is slightly improved since previous. IMPRESSION: Thyroid nodules as detailed above. Recommend ultrasound it guided biopsy of the right thyroid lobe nodule that is consistent with TI-RADS category 5 and also the larger nodule on the right consistent with TI-RADS category 4. Reviewed, Interpreted and Dictated by Darren Lilly III, MD Transcribed by Faby Reed Authenticated and [facility]
== END ==
PROVIDERS: PCP Obstetrics & Gynecology; Visit Provider Otolaryngology
DX: E04.1 Nontoxic single thyroid nodule (principal)
CPT/HCPCS: 76536

== ENCOUNTER → 2022-06-19 06:20 | Outpatient (CLI) | payer MEDICAID, SELFPAY ==
[2022-06-19 16:44] LABS: Basophils # 0.1 K/mm3 (0-0.2); Basophils % 0.7 % (0.1-2.0); Eosinophils # 0.1 K/mm3 (0.0-0.4); Eosinophils % 1.8 % (0.1-12.0); Hematocrit 42.8 % (37.0-47.0); Hemoglobin 13.6 g/dL (12.2-16.2); Lymphocytes # 1.9 K/mm3 (0.7-4.5); Lymphocytes % 26.7 % (10-50); Mean Corpuscular HGB Conc 31.7 g/dL (31.8-35.4); Mean Corpuscular Volume 85.1 fl (81-99); Mean Platelet Volume 7.9 fl (7.4-10.4); Monocytes # 0.4 K/mm3 (0.1-1.0); Monocytes % 5.4 % (1.7-9.3); Neutrophils # 4.7 K/mm3 (1.8-7.8); Neutrophils % 65.3 % (37.0-80.0); Platelet Count 282 K/mm3 (142-424); Red Blood Count 5.03 M/mm3 (4.20-5.40); Red Cell Distribution Width 15.1 % (11.5-17.5); White Blood Count 7.2 K/mm3 (4.8-10.8)
[2022-06-19 16:51] LABS: Alanine Aminotransferase 28 U/L (12-78); Albumin Level 4.7 g/dl (3.5-5.0); Albumin/Globulin Ratio 1.4 (1.1-1.8); Alkaline Phosphatase 105 U/L (38-126); Anion Gap 14.3 mEq/L (5-15); Aspartate Amino Transferase 38 U/L (14-36); Bilirubin,Total 0.3 mg/dl (0.2-1.3); Blood Urea Nitrogen 12 mg/dl (7-17); Calcium 10.1 mg/dl (8.4-10.2); Carbon Dioxide 26 mmol/L (22.0-30.0); Chloride 103 mmol/L (98-107); Chol/HDL Ratio 4.1 (1-3.5); Cholesterol 196 mg/dl (140-200); Estimated Glomerular Filt Rate 99 ml/min (>60); GFR (African American) 120 ML/MIN (>60); Globulin 3.4 g/dL (1.3-3.2); Glucose 96 mg/dl (74-100); HDL Cholesterol 48 mg/dl (40-60); Potassium 4.3 mmoL/L (3.5-5.1); Sodium 139 mmol/L (136-145); Total Protein,Serum 8.1 g/dl (6.3-8.2); Triglycerides 213 mg/dl (30-150); VLDL Cholesterol 43 mg/dL (0-40)
[2022-06-19 17:10] LABS: 25-OH Vitamin D, Total 33.2 ng/mL (30-100)
[2022-06-19 17:24] LABS: Thyroid Stimulating Hormone 1.49 uIU/mL (0.465-4.68)
[2022-06-19 17:49] LABS: Iron 45 ug/dL (37-170)
[2022-06-19 17:59] LABS: Total Iron Binding Capacity 347 ug/dL (265-497)
[2022-06-19 19:07] LABS: Ferritin 29.6 ng/ml (6.24-137)
[2022-06-21 09:45] LABS: Direct LDL Cholesterol 103 mg/dL (100-129)
== END ==
PROVIDERS: PCP Physician Assistant; Visit Provider Physician Assistant
DX: N92.6 Irregular menstruation, unspecified (principal); E66.9 Obesity, unspecified; Z68.41 Body mass index [BMI] 40.0-44.9, adult
CPT/HCPCS: 80053; 80061; 82306; 82728; 83540; 83550; 84443; 85025

== ENCOUNTER → 2022-06-26 08:39 | Outpatient (CLI) | payer MEDICAID, SELFPAY ==
--- NOTE | 2022-06-26 08:40 | US_ITS ---
FINAL REPORT CLINICAL HISTORY: .2 right thyroid nodules FINDINGS: Ultrasound guided thyroid biopsy. Attending radiologist: Dr. Ballesteros Physician Immigration Investigator: Fritz Polo PA-C HISTORY: TR 4 and TR 5 nodules within the right lobe of the thyroid. PROCEDURE: After informed consent was obtained and a time-out was performed, the patient was prepped and draped in usual sterile fashion over the right neck. Utilizing local anesthesia and sterile technique with a 25-gauge needle, access to lesion was obtained. Three passes were made into both the TR 4 and TR 5 nodules. The patient tolerated procedure well and left the department in good condition. IMPRESSION: Status post ultrasound guided biopsy of 2 thyroid nodules without immediate complication. Films reviewed , interpreted and dictated by Dr. Ballesteros. Transcribed by Fritz Polo PA-C. Reviewed, Interpreted and Dictated by Jude Ballesteros MD Transcribed by ESTIVEN Mcgregor Authenticated and [facility]
== END ==
PROVIDERS: PCP Physician Assistant; Visit Provider Physician Assistant
DX: E04.1 Nontoxic single thyroid nodule (principal)
CPT/HCPCS: 10005

== ENCOUNTER → 2022-07-04 10:58 | Outpatient (CLI) | payer MEDICAID, SELFPAY ==
--- NOTE | 2022-07-04 10:59 | US_ITS ---
FINAL REPORT CLINICAL HISTORY: abn bleeding, prolonged uterine bleeding X 4 months FINDINGS: Transvaginal sonographic images of the pelvis were obtained. The uterus is somewhat enlarged measuring 9.5 x 4.7 x 6.3 cm. The endometrium measures 20 mm, which is abnormally. No uterine mass is identified. The right ovary measures 3.2 cm in length and left ovary measures 3.2 cm in length. Normal blood flow seen to the ovaries. There is no evidence of free fluid. IMPRESSION: Somewhat enlarged uterus with nonspecific endometrial thickening. Reviewed, Interpreted and Dictated by Darren Lilly III, MD Transcribed by Neha Lozano Authenticated and [facility]
== END ==
PROVIDERS: PCP Physician Assistant; Visit Provider Physician Assistant
DX: N92.6 Irregular menstruation, unspecified (principal)
CPT/HCPCS: 76830

== ENCOUNTER 2022-07-22 16:48 | Emergency (ER) | payer MEDICAID, SELFPAY ==
[2022-07-22 17:09] VITALS: BP 140/81; PULSE 91; RESP 18; TEMP 37.1; O2SAT 98; BMI 41.4
[2022-07-22 18:09] VITALS: BP 148/105; PULSE 85; RESP 17; TEMP 36.8; O2SAT 100; BMI 41.3
--- NOTE | 2022-07-22 18:28 | PC.NURSE ---
ED MD AT BEDSIDE FOR EVALUATION
[2022-07-22 18:29] LABS: Microscopic, Urine URINE MICROSCOPIC (MICROSCOPIC)
[2022-07-22 18:33] LABS: Appearance,Urine SL CLOUDY (Clear); Bilirubin,Urine Negative (Negative); Blood, Urine 3+ (Negative); Color,Urine DK YELLOW (Yellow); Glucose,Urine (UA) Negative (Negative); Ketones,Urine Negative (Negative); Leukocyte Esterase,Urine Negative (Negative); Nitrate,Urine Negative (Negative); Protein,Urine TRACE (Negative); Specific Gravity, Urine >= 1.030 (1.005-1.030); Urobilinogen,Urine 0.2 EU/dl (0.2)
[2022-07-22 18:43] LABS: RBC,Urine TNTC #/hpf (0-3); WBC,Urine Occasional #/hpf (0-3)
[2022-07-22 18:44] LABS: Bacteria,Urine Trace /lpf; Squamous Epithelial Cell,Urine Occasional #/hpf (0-5)
--- NOTE | 2022-07-22 18:48 | CT_ITS ---
PROCEDURE INFORMATION: Exam: CT Abdomen And Pelvis With Contrast Exam date and time: 07/22/22 07:26 PM Age: 32 years old Clinical indication: Abdominal tenderness; Additional info: Concern for aub and adhesion pain TECHNIQUE: Imaging protocol: Computed tomography of the abdomen and pelvis with contrast. Radiation optimization: All CT scans at this facility use at least one of these dose optimization techniques: automated exposure control; mA and/or kV adjustment per patient size (includes targeted exams where dose is matched to clinical indication); or iterative reconstruction. Contrast material: ISOVUE; Contrast volume: 75 ml; Contrast route: IV; COMPARISON: US TRANSVAGINAL 07/04/22 11:35 AM FINDINGS: Tubes, catheters and devices: None noted. Lungs: Lung bases appear clear. Heart: No significant coronary calcifications. No cardiomegaly. No significant pericardial effusion. Liver: Normal. No mass. Gallbladder and bile ducts: Normal. No calcified stones. No ductal dilation. Pancreas: Normal. No ductal dilation. Spleen: Normal. No splenomegaly. Adrenal glands: Normal. No mass. Kidneys and ureters: 2 mm nonobstructive calcification right lower pole calyx. No hydronephrosis. Stomach and bowel: Unremarkable. No obstruction. No mucosal thickening. Appendix: Appendix is well visualized. No evidence of appendicitis. Intraperitoneal space: Unremarkable. No free air. No significant fluid collection. Retroperitoneal space: No significant retroperitoneal inflammatory changes are noted. Vasculature: Unremarkable. No abdominal aortic aneurysm. Lymph nodes: Unremarkable. No enlarged lymph nodes. Urinary bladder: Unremarkable as visualized. Reproductive: Right ovarian cyst 5.7 x 4.6 cm. Bones/joints: Unremarkable. No acute fracture. Soft tissues: Unremarkable. IMPRESSION: 1. Right ovarian cyst 5.7 x 4.[address] evidence of appendicitis.
--- NOTE | 2022-07-22 18:57 | HMH.EDGENADL ---
Discharge Plan Disposition Patient Disposition: Home, Self-Care Condition: Good Prescriptions Prescriptions: No Action No Known Home Medications Referrals Follow up/Referrals: Sahra Cobb PA [Primary Care Provider] - See instructions Activity Restrictions/Add. Instructions Additional Instructions/Restrictions: Follow-up with gynecology as scheduled. If you have any other concerning signs or symptoms, including hemorrhagic bleeding that will not stop, return to the ED for further evaluation. Clinical Impressions Clinical Impression: Abnormal uterine bleeding (AUB) Stand Alone Forms Stand Alone Forms: Work/School Release Instructions Patient Instructions: DI for Vaginal Bleeding Discharge ED Provider: Jun May General Adult HPI General Chief complaint: Vaginal Bleeding Stated complaint: Vaginal bleeding Time Seen by Provider: 07/22/22 17:38 Mode of Arrival: Ambulatory Limitations: No Limitations Description of Symptoms (Recalled from ER Triage Doc. by RN): PT FROM [facility] FOR FURTHER EVALUATION OF VAGINAL BLEEDING. PT REPORTS UNCOMPLICATED REPEAT DELIVERY ON 02/22/2022, STATES SHE HAS HAD VAGINAL BLEEDING SINCE DELIVERY. STATES THAT FOR THE LAST 2 MONTHS BLEEDING HAS BEEN HEAVY HEMORRHAGING SOAKING A PAD EVERY HOUR AND PASSING QUARTER SIZED CLOTS. HAD ROUTINE POST- FOLLOW-UP History of Present Illness HPI narrative: This is a 32-year-old female who is now 5 months presenting with vaginal bleeding. Patient states they have been dealing with abnormal vaginal bleeding for the past 5 months, more acute in the last 2 months. For the past 2 months, patient states that she has been saturating approximately 2 pads a day and passing clots the size of quarters. She has also had associated lower abdominal cramping that is mild and intermittent. No lightheadedness, nausea, vomiting, chest pain, palpitations, shortness of breath, pallor, but patient has had intermittent generalized weakness and fatigue. No exacerbating or remitting factors that she has noticed. She has tried Tylenol and ibuprofen without relief. Patient has appointment with her gut snatcher on 07/27, but could not wait any longer. Related Data Home Medications Medication Instructions Recorded Confirmed No Known Home Medications 07/25/22 07/27/22 Allergies Allergy/AdvReac Type Severity Reaction Status Date / Time codeine Allergy Verified 07/27/22 09:25 gluten Allergy Verified 07/27/22 09:25 milk Allergy Verified 07/27/22 09:25 [facility] Medical History History of hypothyroidism History of PCOS No significant past medical history PCOS (polycystic ovarian syndrome) Surgical History Postcesarean section Family History Other No significant family history Social History Smoking Status: Never smoker second hand exposure: No alcohol intake: never substance use type: denies use current occupational status: employed Travel in the last 8 weeks: None household members: significant other and family housing: house number of children: 1 current occupation: [employer] current occupational exposures/hazards: No caffeine: Yes ROS Obtained: Yes All systems reviewed & no additional complaints except as documented Physical Exam General General appearance: alert, in no apparent distress and obese Head Head exam: atraumatic, normocephalic and normal inspection Eye Eye exam: Present normal appearance, PERRL and EOMI ENT ENT exam: Present normal exam, normal oropharynx, mucous membranes moist, TM's normal bilaterally and normal external ear exam Neck Neck exam: Present normal inspection, full ROM and trachea midline; Absent meningismus or lymphadenopathy Chest
[2022-07-22 19:10] LABS: Basophils # 0.1 K/mm3 (0-0.2); Eosinophils # 0.2 K/mm3 (0.0-0.4); Eosinophils % 2.2 % (0.1-12.0); Hemoglobin 12.2 g/dL (12.2-16.2); Lymphocytes # 2.3 K/mm3 (0.7-4.5); Mean Corpuscular HGB Conc 33.1 g/dL (31.8-35.4); Mean Corpuscular Hemoglobin 27.9 pg (27.0-31.2); Mean Corpuscular Volume 84.3 fl (81-99); Mean Platelet Volume 7.2 fl (7.4-10.4); Monocytes # 0.3 K/mm3 (0.1-1.0); Monocytes % 4.6 % (1.7-9.3); Neutrophils # 4.4 K/mm3 (1.8-7.8); Neutrophils % 60.3 % (37.0-80.0); Platelet Count 284 K/mm3 (142-424); Red Blood Count 4.39 M/mm3 (4.20-5.40); Red Cell Distribution Width 15.1 % (11.5-17.5); White Blood Count 7.3 K/mm3 (4.8-10.8)
[2022-07-22 19:15] LABS: Chloride 103 mmol/L (98-107)
[2022-07-22 19:16] LABS: Potassium 4.5 mmoL/L (3.5-5.1); Sodium 142 mmol/L (136-145)
[2022-07-22 19:18] LABS: Blood Urea Nitrogen 13 mg/dl (7-17); Creatinine Clearance Estimated 97 mL/min (50-200); Estimated Glomerular Filt Rate 98 ml/min (>60); GFR (African American) 119 ML/MIN (>60); HCG Qualitative, Serum Negative (Negative)
[2022-07-22 19:19] LABS: Alanine Aminotransferase 28 U/L (12-78); Albumin Level 4.5 g/dl (3.5-5.0); Albumin/Globulin Ratio 1.4 (1.1-1.8); Alkaline Phosphatase 82 U/L (38-126); Anion Gap 15.5 mEq/L (5-15); Aspartate Amino Transferase 28 U/L (14-36); Carbon Dioxide 28 mmol/L (22.0-30.0); Globulin 3.2 g/dL (1.3-3.2); Glucose 104 mg/dl (74-100); Total Protein,Serum 7.7 g/dl (6.3-8.2)
[2022-07-22 19:21] LABS: Bilirubin,Total < 0.1 mg/dl (0.2-1.3)
[2022-07-22 21:32] VITALS: BP 135/87; PULSE 85; RESP 16; TEMP 36.4; O2SAT 98
== END 2022-07-22 21:36 | disposition home or self-care (01) ==
LOC: UTC 16:51 → ER 18:08
PROVIDERS: Emergency Provider Emergency Medicine; PCP Physician Assistant
DX: N93.9 Abnormal uterine and vaginal bleeding, unspecified (principal); E03.9 Hypothyroidism, unspecified; E28.2 Polycystic ovarian syndrome; E66.9 Obesity, unspecified; Z88.5 Allergy status to narcotic agent; Z91.011 Allergy to milk products; Z91.018 Allergy to other foods; Z68.41 Body mass index [BMI] 40.0-44.9, adult
CPT/HCPCS: 74177; 80053; 81001; 84703; 85025; 96374; 99285; Q9967

== ENCOUNTER → 2022-10-24 09:36 | Outpatient (CLI) | payer MEDICAID, SELFPAY ==
--- NOTE | 2022-10-24 10:01 | US_ITS ---
FINAL REPORT CLINICAL HISTORY: ovarian cyst FINDINGS: Transvaginal sonographic images of the pelvis were obtained. The uterus measures 9.8 x 6.0 x 4.7 cm. The endometrium measures 15 mm, which is at the upper limits of normal. No uterine mass is identified. The right ovary measures 3.1 cm in length and left ovary measures 3.1 cm in length. Normal blood flow seen to the ovaries. Multiple small follicles are seen in both ovaries. There is no evidence of free fluid. IMPRESSION: Multiple small follicles in both ovaries may represent PCOS. Endometrium measures at the upper limits of normal. Reviewed, Interpreted and Dictated by Darren Lilly III, MD Transcribed by Neha Lozano Authenticated and [facility]
== END ==
PROVIDERS: PCP Physician Assistant; Visit Provider Obstetrics & Gynecology
DX: N83.209 Unspecified ovarian cyst, unspecified side (principal)
CPT/HCPCS: 76830

== ENCOUNTER → 2023-01-09 15:43 | Outpatient (CLI) | payer MEDICAID, SELFPAY ==
[2023-01-09 17:38] LABS: Basophils # 0.1 K/mm3 (0-0.2); Basophils % 0.7 % (0.1-2.0); Eosinophils # 0.1 K/mm3 (0.0-0.4); Eosinophils % 1.5 % (0.1-12.0); Hematocrit 36.8 % (37.0-47.0); Hemoglobin 11.9 g/dL (12.2-16.2); Lymphocytes # 2.3 K/mm3 (0.7-4.5); Lymphocytes % 28.9 % (10-50); Mean Corpuscular HGB Conc 32.3 g/dL (31.8-35.4); Mean Corpuscular Hemoglobin 25.8 pg (27.0-31.2); Mean Corpuscular Volume 79.8 fl (81-99); Mean Platelet Volume 8.2 fl (7.4-10.4); Monocytes # 0.5 K/mm3 (0.1-1.0); Monocytes % 6.1 % (1.7-9.3); Neutrophils % 62.8 % (37.0-80.0); Platelet Count 283 K/mm3 (142-424); Red Blood Count 4.61 M/mm3 (4.20-5.40); Red Cell Distribution Width 15.1 % (11.5-17.5)
[2023-01-09 18:15] LABS: Sodium 139 mmol/L (136-145)
[2023-01-09 18:18] LABS: Alanine Aminotransferase 37 U/L (12-78); Albumin Level 4.6 g/dl (3.5-5.0); Albumin/Globulin Ratio 1.8 (1.1-1.8); Alkaline Phosphatase 63 U/L (38-126); Anion Gap 12.3 mEq/L (5-15); Aspartate Amino Transferase 27 U/L (14-36); Bilirubin,Total 0.3 mg/dl (0.2-1.3); Blood Urea Nitrogen 12 mg/dl (7-17); Calcium 9.4 mg/dl (8.4-10.2); Carbon Dioxide 26 mmol/L (22.0-30.0); Chloride 105 mmol/L (98-107); Estimated Glomerular Filt Rate 84 ml/min (>60); GFR (African American) 102 ML/MIN (>60); Globulin 2.5 g/dL (1.3-3.2); Glucose 81 mg/dl (74-100); Potassium 4.3 mmoL/L (3.5-5.1); Total Protein,Serum 7.1 g/dl (6.3-8.2)
[2023-01-09 19:25] LABS: HCG,Quantitative < 2 mIU/ml (0-5.42)
== END ==
PROVIDERS: PCP Physician Assistant; Visit Provider Obstetrics & Gynecology
DX: Z01.812 Encounter for preprocedural laboratory examination (principal); N83.209 Unspecified ovarian cyst, unspecified side
CPT/HCPCS: 36415; 80053; 84702; 85025

== ENCOUNTER 2023-01-10 06:54 | Day surgery (SDC) | payer MEDICAID, SELFPAY ==
[2023-01-10] VITALS (10 sets, daily range): BP systolic 120–149; BP diastolic 64–92; PULSE 64–86; RESP 12–18; TEMP 36.2–43; O2SAT 96–100; BMI 38.9
--- NOTE | 2023-01-10 07:54 | EXP.ANES.CKL ---
[facility] Disclaimer: The information contained in this section may have been updated after the patient was seen, as this information can be updated by other users. Medical History History of hypothyroidism History of PCOS MTHFR gene mutation Ovarian cyst PCOS (polycystic ovarian syndrome) Surgical History History of wisdom tooth extraction Postcesarean section Family History Other Family history of cancer Family history of diabetes mellitus Family history of hypertension Social History Smoking Status: Never smoker second hand exposure: No alcohol intake: never substance use type: denies use current occupational status: employed and unemployed Travel in the last 8 weeks: None household members: significant other and family housing: house number of children: 1 current occupation: [employer] current occupational exposures/hazards: No caffeine: Yes [facility] Anesthesia Checklist Patient Identification Patient Identification: Arm Band and Verbal (Name & ) Structural Data Admitted From: Home Planned Operative Procedure/s: Hyst/D & C Consent for Planned Operative Procedure(s) Verified: Yes NPO Status Verified Time NPO: 00:00 Chart Verification Results Verified: CBC, BMP and HCG Additional verifications Anesthesia Reactions: No Hx Blood Transfusions: No Blood Transfusion Reaction: No Airway Assessment C-Spine Mobility Assessed: Yes TMJ Mobility Assessed: Yes Dentition: Good Dentition Neurological Assessment Level of Consciousness: Awake Hx Seizures: No Numbness or tingling in extremities: No Anesthesia Plan Anesthesia Risk discussed: Yes Anesthesia Plan: Verified ASA Class: II Anesthesia Type: General
--- NOTE | 2023-01-10 08:55 | EXP.HP ---
History of Present Illness *Admission Date: 01/10/23 *Reason for visit:: Scheduled surgery *History of present illness: Ms Angelita Giles is a very pleasant 32 yo P2000 who presents to [facility] for scheduled procedure. She complains of abnormal uterine bleeding. She reports she started bleeding October 13 and has bled every day since. Bleeding is moderate. In review, after vaginal delivery 02/22/2022 she continued to bleed until July. Bleeding varied from heavy to light. She She admits to irregular cycles prior to . She reports it took her 3 years to conceive. She states PCP checked thyroid labs and all were within normal limits. Hysteroscopy D&C was scheduled for beginning of October but she requested to cancel surgery because bleeding had stopped. Pelvic ultrasound 10/24 demonstrated polycystic ovaries; endometrial thickness was 15 mm. She states she is worried about possible cancer. She admits she has a strong family history of a lot of different types of cancers. Last pap smear was 08/18/21 - negative. [facility] Disclaimer: The information contained in this section may have been updated after the patient was seen, as this information can be updated by other users. Medical History History of hypothyroidism History of PCOS MTHFR gene mutation Ovarian cyst PCOS (polycystic ovarian syndrome) Surgical History History of wisdom tooth extraction Postcesarean section Family History Other Family history of cancer Family history of diabetes mellitus Family history of hypertension Social History Smoking Status: Never smoker second hand exposure: No alcohol intake: never substance use type: denies use current occupational status: employed and unemployed Travel in the last 8 weeks: None household members: significant other and family housing: house number of children: 1 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 current occupational exposures/hazards: No caffeine: Yes Review of Systems Review of Systems Review of systems:: pertinent systems reviewed and negative unless documented below *Genitourinary Genitourinary: Reports abnormal menses Meds Home Medications and Allergies Home Medications Medication Instructions Recorded Confirmed Type ergocalciferol (vitamin D2) 1,000 1,000 unit PO DAILY Supplement 11/28/22 03/08/23 History unit capsule vitamin B complex 1 cap PO DAILY Supplement 10/02/22 01/10/23 History desvenlafaxine succinate 25 mg 25 mg PO DIRECTED depression 01/10/23 01/10/23 History tablet,extended release 24 hr New Prescriptions to Start Prescriptions: Allergies Allergy/AdvReac Type Severity Reaction Status Date / Time codeine Allergy Verified 01/09/23 15:49 gluten Allergy Verified 01/09/23 15:49 milk Allergy Verified 01/09/23 15:49 Exam Data for Last 24 hours Vital signs and Labs for Last 24 Hours: Temp Pulse Resp BP Pulse Ox 97.3 F L 64 15 149/80 H 96 01/10/23 07:42 01/10/23 07:42 01/10/23 07:42 01/10/23 07:42 01/10/23 07:42 I & O for Last 24 hours: Intake & Output 01/07/23 01/08/23 01/09/23 01/10/23 23:59 23:59 23:59 23:59 Weight 220 lb Constitutional Constitutional: no acute distress *Routine HEENT Exam Head: Present normocephalic and atraumatic Eye: Absent conjunctivae pink ENT: Present mucous membranes moist *Routine Neck Exam Neck: Present full ROM *Routine Respiratory Exam Respiratory: Present CTA bilaterally and normal respiratory effort *Routine Cardiovascular Exam Cardiovascular: Present RRR *Routine Abdominal Exam Abdominal: Present soft and normoactive bowel sounds; Absent tenderness or distended *Routine Rectal Exam Rectal:: deferred *Routine Genitalia Exam Genitalia:: deferred *Routine Extremities
--- NOTE | 2023-01-10 09:57 | P.PNANES_ITS ---
[facility] Anesthesia Record Part I Anesthesia Record I Intake, IV Amount: 1,200 Estimated blood loss (mL): 0 Urine output (mL): 0 Blood Pressure: 122/64 SaO2: 98 Pulse Rate: 85 Respiratory Rate: 12 Temperature: 97.9 F Patient is:: Awake and Stable Stable to PACU at:: 09:55
--- NOTE | 2023-01-10 10:08 | P.OP_ITS ---
Date of procedure: 01/10/23 Pre-op Diagnosis:: 1. Abnormal uterine bleeding 2. Irregular menses 3. PCOS 4. Morbid obesity Post-op Diagnosis:: 1. Abnormal uterine bleeding 2. Irregular menses 3. PCOS 4. Morbid obesity Procedure performed:: Hysteroscopy, D&C with Myosure Surgeon:: Ya Sims DO Blocker Hand(s):: N/a OPERATIONS RESEARCH ANALYST:: Dennys Mckeon Anesthesia: GETA Estimated blood loss (mL): 5 Clinical Note:: Ms Angelita Giles is a very pleasant 32 yo P2000 who presents to [facility] for scheduled procedure. She complains of abnormal uterine bleeding. She reports she started bleeding October 13 and has bled every day since. Bleeding is moderate. In review, after vaginal delivery 02/22/2022 she continued to bleed until July. Bleeding varied from heavy to light. She She admits to irregular cycles prior to . She reports it took her 3 years to conceive. She states PCP checked thyroid labs and all were within normal limits. Hysteroscopy D&C was scheduled for beginning of October but she requested to cancel surgery because bleeding had stopped. Pelvic ultrasound 10/24 demonstrated polycystic ovaries; endometrial thickness was 15 mm. She states she is worried about possible cancer. She admits she has a strong family history of a lot of different types of cancers. Last pap smear was 08/18/21 - negative. Operative findings:: 1. On bimanual exam, uterus normal size and shape, midline. No adnexal masses palpated 2. On hysteroscopic exam, bilateral tubal ostia easily visualized. Large amount of fluffy endometrial tissue present within the cavity Operative note:: Risks, benefits and alternatives were discussed with the patient. Risks include but are not limited to bleeding, infection, uterine perforation and VTE. Patient voiced understanding and agreed to proceed. She was wheeled back to the operating room and placed under general anesthesia without difficulty. She was placed in dorsal lithotomy position and prepped and draped in the normal sterile fashion. Straight catheter was used to drain the bladder. A bimanual exam was performed. A weighted Auvard was placed in the vaginal vault. Single tooth tenaculum was placed on anterior lip of the cervix. Uterus sounded to 9. Sequential Toan dilators were used to dilate the cervical os. Hysteroscope was inserted through the cervical canal and into uterine cavity. See findings above. Pictures were taken. Myosure device was inserted through the hysteroscope. Curettage was performed with Myosure per protocol in a 360 degree fashion. Hysteroscope with Myosure was removed. Medium size sharp curette was inserted through the cervix into the uterine cavity. The endometrial cavity was curetted with a systemic [id number] movement of the curette so that all possible endometrium was sampled. All endometrial curettings will be sent to pathology for review. Instruments were removed from the vagina. Tenaculum site was noted to oozing. 2-0 Chromic suture was used to suture ligate the bleeding. Hemostasis was noted. Patient was awaken from anesthesia without difficulty. She was transported to recovery room in stable condition. Patient will be discharged home when awake and ambulating. She was given postop instructions as well as instructions to follow-up in the office in 2 weeks at which time pathology will be reviewed. Condition: stable Disposition: same day Specimens:: 1. Endometrial curettings Complications:: None
--- NOTE | 2023-01-11 05:47 | EXP.ANES.II ---
[facility] Anesthesia Record Part II Anesthesia Record Part II Discharge Time: 10:25 Destination: Surgical Day Care (OP Surgery) PACU nurse assessment reviewed?: Yes Patient Condition:: Good Anesthesia Complications:: None Swallowing reflex intact?: Yes Cyanosis?: No Blood Pressure: 137/85 Pulse Rate: 66 Temperature: 97 F Mental Status: Alert & Oriented Pain level:: 0 Nausea and/or vomitting:: None Intake, IV Amount: 0
[2023-01-11 05:48] VITALS: BP 137/85; PULSE 66; TEMP 36.1
== END 2023-01-10 11:05 | disposition home or self-care (01) ==
PROVIDERS: PCP Physician Assistant; Visit Provider Obstetrics & Gynecology
PROC: (CPT 58558; principal; 2023-01-10 08:30)
DX: N93.9 Abnormal uterine and vaginal bleeding, unspecified (principal); N92.6 Irregular menstruation, unspecified; E28.2 Polycystic ovarian syndrome; E66.01 Morbid (severe) obesity due to excess calories; Z98.891 History of uterine scar from previous surgery; Z79.899 Other long term (current) drug therapy
CPT/HCPCS: 58558; 87070; 87205; J2405

== ENCOUNTER → 2023-02-22 11:46 | Outpatient (CLI) | payer MEDICAID, SELFPAY ==
--- NOTE | 2023-02-22 11:51 | US_ITS ---
PROCEDURE INFORMATION: Exam: US Left Breast, Complete Exam date and time: 02/22/2023 2:07 PM Age: 32 years old Clinical indication: Mass, lump, or swelling; Left; Additional info: Left breast abscess TECHNIQUE: Imaging protocol: Complete ultrasound of all four quadrants of the left breast and the retroareolar regions, including ultrasound of the axilla when performed. COMPARISON: US BREAST LT COMPLETE 04/21/2020 1:18 PM FINDINGS: Breast: Sonographic images of the left breast including the retroareolar region, all 4 quadrants and the axilla demonstrates a hypoechoic ovoid mass within the left 3 o'clock axis skin 5 cm from the nipple measuring 0.7 x 0.2 cm in dimension, likely reflecting a sebaceous cyst. No findings to suggest abscess. Incidental 0.5 cm cyst in the left 11 o'clock axis 6 cm from the nipple. No architectural distortion or acoustical shadowing. No skin thickening or axillary adenopathy. IMPRESSION: Cutaneous subcentimeter mass in the left breast. No suspicious sonographic findings. ASSESSMENT: BI-RADS Category 2: Benign
--- NOTE | 2023-02-22 11:53 | XR_ITS ---
FINAL REPORT CLINICAL HISTORY: ASTHMA COMPARISON: 10/09/2018 FINDINGS: Two views of the chest were obtained. The heart size and pulmonary vascularity are within normal limits. The mediastinum is normal. No acute pulmonary abnormality is identified. There is no pneumothorax. The bony thorax is intact. IMPRESSION: No active cardiopulmonary disease. Reviewed, Interpreted and Dictated by Darren Lilly III, MD Transcribed by Faby Reed Authenticated and [facility]
== END ==
PROVIDERS: PCP Physician Assistant; Visit Provider Obstetrics & Gynecology
DX: N61.1 Abscess of the breast and nipple (principal); J45.50 Severe persistent asthma, uncomplicated; R93.89 Abnormal findings on diagnostic imaging of other specified body structures
CPT/HCPCS: 71046; 76641

== ENCOUNTER → 2023-05-29 10:03 | Outpatient (CLI) | payer MEDICAID, SELFPAY ==
--- NOTE | 2023-05-29 10:08 | US_ITS ---
PROCEDURE: US TRANSVAGINAL CLINICAL INDICATION: iud in place and check strings COMPARISON: No exams were available for comparison FINDINGS: Transvaginal sonographic images of the pelvis were obtained. UTERUS: 10.8 cm x 6.2 cmx 4.7 cm with a combined endometrial thickness of 4.6mm. A scar is visualized. There are several nabothian cysts in the cervix. The largest measures 7.8 mm A small amount of free fluid in the cervix. There is an IUD in the correct position within the uterine cavity. LEFT OVARY: [id number] with a volume of 8.5ml.The ovary has a polycystic appearance. RIGHT OVARY: 3cmx 1.7 cmx2cm. The ovary has a polycystic appearance. Both ovaries are seen and have a polycystic appearance. Doppler flow to both ovaries are seen. There is no fluid in the cul-de-sac. IMPRESSION: 1. Bulky anteverted uterus with an IUD in the correct position. The endometrium is thin at 4.6 mm. 2. Several nabothian cysts are seen in the cervix. Small amount of free fluid in the cervix. 3. Both ovaries appear normal and have a polycystic appearance. Dictated by: Selwyn Longoria MD 05/29/2023 12:15 Selwyn Longoria MD in [place] 05/29/2023 12:15
== END ==
PROVIDERS: PCP Physician Assistant; Visit Provider Obstetrics & Gynecology
DX: Z97.5 Presence of (intrauterine) contraceptive device (principal)
CPT/HCPCS: 76830

== ENCOUNTER 2024-01-17 15:31 | Outpatient (CLI) | payer MEDICAID, SELFPAY ==
--- NOTE | 2024-01-17 15:35 | US_ITS ---
PROCEDURE: US TRANSVAGINAL CLINICAL INDICATION: pt. having bleeding with IUD COMPARISON: No exams were available for comparison FINDINGS: Transvaginal sonographic images of the pelvis were obtained. UTERUS: 9.6cm x 6.4cmx 4.8cm anteverted with a combined endometrial thickness of 6.3mm. There is a 0.75 cm nabothian cyst in the cervix. An IUD is present in the position within the uterine cavity. There is a small amount of fluid in the cervix . LEFT OVARY: 1.8cmx2.2cmx2.7cm with a volume of 5.4ml. Appears polycystic. RIGHT OVARY: 3.0cmx 2.9cmx2.7cm with a volume of 12.5ml. There is a 1.9 cm follicle. Both ovaries are seen and appear normal. Doppler flow to both ovaries are seen. There is no fluid in the cul-de-sac. IMPRESSION: 1. Anteverted uterus normal in shape and size. 2. There is an IUD present in the correct position within the uterine cavity. 3. Both ovaries are seen and appear normal. The left ovary appears polycystic. 4. No fluid in the cul-de-sac. Dictated by: Selwyn Longoria MD 01/18/2024 03:19 Selwyn Longoria MD in [place] 01/18/2024 03:19
== END 2024-01-17 23:59 ==
LOC: RAD 15:32
PROVIDERS: PCP Physician Assistant; Visit Provider Obstetrics & Gynecology
DX: N92.1 Excessive and frequent menstruation with irregular cycle (principal); Z97.5 Presence of (intrauterine) contraceptive device
CPT/HCPCS: 76830

== ENCOUNTER 2024-11-27 11:45 | Emergency (ER) | payer MEDICAID, SELFPAY ==
[2024-11-27 11:45] VITALS: BP 159/107; PULSE 125; RESP 20; TEMP 36.9; O2SAT 100; BMI 31.8
--- NOTE | 2024-11-27 11:51 | ECG_ITS ---
APPROVED REPORT Exam: Resting ECG HR:114 bpm ECG Measurements Heart Rate 114 AXES IL 152 P 65 QRSd 97 QRS 65 QT 311 T 52 QTc 378 Conclusion SINUS TACHYCARDIA LOW QRS VOLTAGE IN PRECORDIAL LEADS [QRS DEFLECTION < 1.0 mV IN CHEST LEADS] ABNORMAL RHYTHM ECG No STEMI Electronically signed by : GEORGIANA RAYMOND, 11/30/2024 06:48:22
[2024-11-27 11:57] VITALS: BMI 31.3
--- NOTE | 2024-11-27 12:02 | XR_ITS ---
FINAL REPORT TECHNIQUE: Chest PA & Lateral CLINICAL HISTORY: asthma COMPARISON: 02/22/2023 FINDINGS: Two views of the chest were performed. The heart size is normal. The mediastinum is within normal limits. There is no acute cardiopulmonary process. There are no pleural effusions. There is no pneumothorax. The bony thorax appears intact. IMPRESSION: No acute cardiopulmonary process. Reviewed, Interpreted and Dictated by Jude Ballesteros MD Transcribed by Faby Reed Authenticated and [facility]
[2024-11-27] MEDS: IPRATROPIUM/ALBUTEROL 3 ML NEB IH (12:08)
[2024-11-27 12:09] LABS: Basophils # 0.1 K/mm3 (0-0.2); Basophils % 0.4 % (0.1-2.0); Eosinophils % 0.1 % (0.1-12.0); Hematocrit 44.1 % (37.0-47.0); Hemoglobin 14.9 g/dL (12.2-16.2); Lymphocytes # 1.7 K/mm3 (0.7-4.5); Lymphocytes % 13.2 % (10-50); Mean Corpuscular HGB Conc 33.8 g/dL (31.8-35.4); Mean Corpuscular Hemoglobin 28.8 pg (27.0-31.2); Mean Corpuscular Volume 85.1 fl (81-99); Mean Platelet Volume 9.9 fl (7.4-10.4); Monocytes # 0.8 K/mm3 (0.1-1.0); Neutrophils # 10.4 K/mm3 (1.8-7.8); Neutrophils % 79.8 % (37.0-80.0); Platelet Count 309 K/mm3 (142-424); Red Blood Count 5.18 M/mm3 (4.20-5.40); Red Cell Distribution Width 12.5 % (11.5-17.5)
[2024-11-27 12:10] LABS: Albumin Level 5.4 g/dl (3.5-5.0); Chloride 105 mmol/L (98-107); Potassium 3.4 mmoL/L (3.5-5.1); Sodium 141 mmol/L (136-145)
--- NOTE | 2024-11-27 12:12 | ED_ITS ---
Discharge Plan Disposition Patient Disposition: Home, Self-Care Condition: Good Prescriptions Prescriptions: New albuterol sulfate 90 mcg/actuation HFA aerosol inhaler 1 inh inhalation Q4H PRN (Reason: shortness of breath or wheezing) Qty: 8.5 0RF prednisone 50 mg tablet 50 mg PO DAILY 5 Days Qty: 5 0RF doxycycline hyclate 100 mg capsule 100 mg PO BID 10 Days Qty: 20 0RF albuterol sulfate [Ventolin HFA] 90 mcg/actuation HFA aerosol inhaler 2 inh inhalation Q4H PRN (Reason: shortness of breath or wheezing) Qty: 8 0RF No Action budesonide-formoterol [Symbicort] 80-4.5 mcg/actuation HFA aerosol inhaler 2 inh inhalation Patient Comments: INHALE 2 PUFFS BY MOUTH TWICE DAILY Kyleena 17.5 mcg/24 hrs (5 yrs) 19.5 mg intrauterine device 1 device intrauterine vitamin B complex Capsule 1 cap PO DAILY clindamycin phosphate 2 % cream 1 appful vaginal HS 7 Days Qty: 40 0RF Referrals Follow up/Referrals: ProviderBrook MD [Referring] - See instructions Jose A Crabtree MD [Physician] - See instructions (Asthma) Activity Restrictions/Add. Instructions Additional Instructions/Restrictions: I have sent in a prescription for new rescue inhaler. You may utilize it 2 puffs every 4 hours as needed until you can get to seek medical care. Please continue to utilize your steroid inhaler daily. I have referred you to pulmonology for ongoing care management. If you have continued new or worsening symptoms follow-up with your PCP within 48 hours or return to the ER as needed. Clinical Impressions Clinical Impression: Asthma exacerbation Qualifiers: Asthma severity: mild Asthma persistence: intermittent Qualified Code(s): J 45.21 - Mild intermittent asthma with (acute) exacerbation Stand Alone Forms Stand Alone Forms: Work/School Release Print Language Print Language: Romanian Discharge ED Provider: Yury Vaughn Adult HPI <ESTIVEN Vizcaino - Last Filed: 11/27/24 20:47> General Chief complaint: Shortness of Breath/Dyspnea Stated complaint: CP Time Seen by Provider: 11/27/24 12:11 Mode of Arrival: Ambulatory Source of Information: Patient Limitations: No Limitations Description of Symptoms (Recalled from ER Triage Doc. by RN): pt is experiencing chest tightness. has asthma. History of Present Illness HPI narrative: Patient presents for asthma exacerbation. Patient has had dyspnea for several hours. She took an inhaler and utilized it multiple times without relief. She reports that she has no actual chest pain but feels like it is difficult to take of breath. She denies any fever chills hemoptysis hematochezia melena nausea vomiting diarrhea. 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 Related Data Home Medications ?Medication ?Instructions ?Recorded ?Confirmed vitamin B complex 1 cap PO DAILY Supplement 10/02/22 01/02/24 budesonide-formoterol HFA 80 2 inh inhalation 01/30/23 01/02/24 mcg-4.5 mcg/actuation aerosol inhaler (Symbicort) levonorgestrel 17.5 mcg/24 hr (up 1 device intrauterine 04/17/23 01/02/24 to 5 yrs) 19.5mg intrauterine device (Kyleena) Previous Rx's ?Medication ?Instructions ?Recorded clindamycin phosphate 2 % vaginal 1 appful vaginal HS 7 days #40 03/07/24 cream grams Ventolin HFA 90 mcg/actuation 2 inh inhalation Q4H PRN shortness 11/27/24 aerosol inhaler (albuterol sulfate) of breath or wheezing #8 grams albuterol sulfate 90 mcg/actuation 1 inh inhalation Q4H PRN shortness 11/27/24 aerosol inhaler of breath or wheezing #8.5 grams doxycycline hyclate 100 mg capsule 100 mg PO BID 10 days #20 caps 11/27/24 prednisone 50 mg tablet 50 mg PO DAILY 5 days #5 tabs 11/27/24 Allergies Allergy/AdvReac Type Severity Reaction Status Date / Time codeine Allergy Verified 01/02/24 11:26 gluten Allergy Verified 01/02/24 11:26 milk Allergy Verified 01/02/24 11:26 [facility] <ESTIVEN Vizcaino - Last Filed: 11/27/24 20:47> [facility] Disclaimer: The information contained in this section may have been updated after the patient was seen, as this information can be updated by other users. Medical History (Updated 11/27/24 @ 13:11 by ESTIVEN Vizcaino) Vaginal odor Vaginal Discharge Skin lesion of breast Ovarian cyst MTHFR gene mutation PCOS (polycystic ovarian syndrome) History of PCOS History of hypothyroidism Surgical History H/O dilation and curettage History of hysteroscopy History of wisdom tooth extraction Postcesarean section Family History Other Family history of cancer Family history of diabetes mellitus Family history of hypertension Social History Smoking Status: Current every day smoker tobacco type: cigarettes packs per day: 1 second hand exposure: No alcohol intake: never substance use type: denies use current occupational status: employed and unemployed Travel in the last 8 weeks: None household members: significant other and family housing: house number of children: 1 current occupation: [employer] current occupational exposures/hazards: No caffeine: Yes Other Medical History Have you received the Flu Vaccine for this season: No Have you received the Pneumonia Vaccine: No <ESTIVEN Vizcaino - Last Filed: 11/27/24 20:47> ROS Obtained: Yes Systems reviewed as appropriate & no additional complaints except as documented Physical Exam <ESTIVEN Vizcaino - Last Filed: 11/27/24 20:47> General General appearance: alert and in no apparent distress Respiratory Respiratory exam: Present wheezes; Absent normal lung sounds bilaterally or accessory muscle use Cardiovascular Cardiovascular exam: Present tachycardia Neurological Exam Neurological exam: Present alert and oriented X3 Medical Decision Making <ESTIVEN Vizcaino - Last Filed: 11/27/24 20:47> Medical Records Medical records reviewed: Yes I reviewed the patient's medical records. Screening: Per USPSTF and CDC recommendations, given the prevalence of disease in our region, it is our hospital?s policy to screen for HIV and viral Hepatitis for all patients aged 18 and over and those with ongoing risk factors. Umer Inquiry Pt receiving controlled substance: No Vital Signs: 11/27/24 11:45 11/27/24 12:30 11/27/24 13:26 Temperature 98.4 F Temperature Source Oral Pulse Rate 123 H 109 H Pulse Rate [Right] 125 H Respiratory Rate 20 19 Blood Pressure Blood Pressure [Right Arm] 159/107 H Blood Pressure Mean [Right Arm] 124 Blood Pressure Source Blood Pressure Position 02 Sat by Pulse Oximetry 100 100 Oxygen Delivery Method Room Air 11/27/24 13:31 Temperature 98.2 F Temperature Source Pulse Rate 110 H Pulse Rate [Right] Respiratory Rate 18 Blood Pressure 137/91 H Blood Pressure [Right Arm] Blood Pressure Mean [Right Arm] Blood Pressure Source Automatic Cuff Blood Pressure Position Sitting 02 Sat by Pulse Oximetry Oxygen Delivery Method Room Air Lab Data Lab results reviewed: Yes I reviewed the patient's lab results. Lab Results 11/27/24 11:48: WBC 13.0 H, RBC 5.18, Hgb 14.9, Hct 44.1, MCV 85.1, MCH 28.8, MCHC 33.8, RDW 12.5, Plt Count 309, MPV 9.9, Neut % (Auto) 79.8, Lymph % (Auto) 13.2, Preble % (Auto) 6.0, Eos % (Auto) 0.1, Baso % (Auto) 0.4, Neut # (Auto) 10.4 H, Lymph # (Auto) 1.7, Preble # (Auto) 0.8, Eos # (Auto) 0.0, Baso # (Auto) 0.1, Sodium 141, Potassium 3.4 L, Chloride 105, Carbon Dioxide 21 L, Anion Gap 18.4 H , BUN 12, Creatinine 0.70, Estimated Creat Clear 146, Estimated GFR 97, Est GFR ( Amer) 117, Glucose 125 H, Calcium 10.0, Total Bilirubin 0.5, AST 35, ALT 29, Alkaline Phosphatase 62, Troponin I < 0.01, NT-Pro-B Natriuret Pep < 20.0, Total Protein 8.5 H, Albumin 5.4 H, Globulin 3.1, Albumin/Globulin Ratio 1.7, HCV Ab YE w/Rflx PCR Qn Reactive, HIV Ag/Ab Combo Qual Negative 11/27/24 12:17: SARS-CoV-2 (PCR) Not detected, Influenza A Untype (PCR) Not detected, Influenza Type B (PCR) Not detected 11/27/24 11:48 11/27/24 11:48 Orders (Tests/Meds): ED MEDICATIONS Discontinued Medications Generic Name Dose Route Start Last Admin Trade Name Freq PRN Reason Stop Dose Admin Albuterol/Ipratropium 3 ml 11/27/24 12:04 11/27/24 12:08 Ipratropium/Albuterol 3 Ml Neb IH 11/27/24 12:05 3 ml ONCE ONE Administration ORDERS Category Date Time Status Chest XR 2 view (NOT portable) [XR chest 2V] Stat Exams 11/27/24 12:02 Completed BNP [NT Pro Brain Natriuretic Pep.] Stat Lab 11/27/24 11:48 Completed Complete Blood Count Auto Diff Stat Lab 11/27/24 11:48 Completed Comprehensive Metabolic Panel Stat Lab 11/27/24 11:48 Completed HCV RNA PCR, Quant Stat Lab 11/27/24 11:48 Received HIV Combo Stat Lab 11/27/24 11:48 Completed Hepatitis C Ab Qual. W/ RFX Stat Lab 11/27/24 11:48 Completed Rapid PCR Covid and Flu A/B Stat Lab 11/27/24 12:17 Completed Trop I [Troponin I] Stat Lab 11/27/24 11:48 Completed Medical Decision Narrative: In summary patient is a 34-year-old female who presents to the emergency department for evaluation of an asthma exacerbation. Patient reportedly taking an inhaler that she thought was for acute asthma however she brought the inhaler that she had been using which was fluticasone. Patient states that she has had them for quite some time and had another 1 but did not know the name of it. patient is initially normotensive at 159/107 tachycardic at 125 but sinus tachycardia on the bedside monitor breathing 20 times a minute satting at 100% room air upon arrival, febrile at 98.4. Physical exam reveals an expiratory wheezes in all 4 dominguez with increased work of breathing but no actual accessory muscle use. Heart sounds are normal patient has no dependent edema noted.. Differential diagnosis includes asthma exacerbation versus viral bacterial pneumonia. Initial workup will be conducted with hematologic labs respiratory swab plain film chest x-ray twelve-lead EKG. Initial interventions include DuoNeb Decadron continuous cardiac monitoring and pulse oximetry. Initial workup reviewed by me shows that her hematologic labs are significant for white count of 13 with absolute neutrophil count of 10.4 potassium 3.4 CO2 of 21 gap of 18 glucose 125 initial troponin of less than 0.01 NT proBNP of 20 her COVID and flu swabs are negative and my informal interpretation of her plain film chest x-ray shows No acute process. Upon repeat evaluation patient's heart rate did come down to 109 at the time my exam at the bedside blood pressure was 137/81 patient had no more increased work of breathing and her breath sounds were clear and patient subjectively felt significantly better. Given this patient is appropriate for discharge with a prescription for prednisone and new prescription of albuterol inhaler prescription for doxycycline and referred to pulmonology for ongoing management care for asthma. <Jnu May MD - Last Filed: 11/27/24 23:09> Vital Signs: 11/27/24 11:45 11/27/24 12:30 11/27/24 13:26 Temperature 98.4 F Temperature Source Oral Pulse Rate 123 H 109 H Pulse Rate [Right] 125 H Respiratory Rate 20 19 Blood Pressure Blood Pressure [Right Arm] 159/107 H Blood Pressure Mean [Right Arm] 124 Blood Pressure Source Blood Pressure Position 02 Sat by Pulse Oximetry 100 100 Oxygen Delivery Method Room Air 11/27/24 13:31 Temperature 98.2 F Temperature Source Pulse Rate 110 H Pulse Rate [Right] Respiratory Rate 18 Blood Pressure 137/91 H Blood Pressure [Right Arm] Blood Pressure Mean [Right Arm] Blood Pressure Source Automatic Cuff Blood Pressure Position Sitting 02 Sat by Pulse Oximetry Oxygen Delivery Method Room Air Lab Data Lab Results 11/27/24 11:48: WBC 13.0 H, RBC 5.18, Hgb 14.9, Hct 44.1, MCV 85.1, MCH 28.8, MCHC 33.8, RDW 12.5, Plt Count 309, MPV 9.9, Neut % (Auto) 79.8, Lymph % (Auto) 13.2, Preble % (Auto) 6.0, Eos % (Auto) 0.1, Baso % (Auto) 0.4, Neut # (Auto) 10.4 H, Lymph # (Auto) 1.7, Preble # (Auto) 0.8, Eos # (Auto) 0.0, Baso # (Auto) 0.1, Sodium 141, Potassium 3.4 L, Chloride 105, Carbon Dioxide 21 L, Anion Gap 18.4 H , BUN 12, Creatinine 0.70, Estimated Creat Clear 146, Estimated GFR 97, Est GFR ( Amer) 117, Glucose 125 H, Calcium 10.0, Total Bilirubin 0.5, AST 35, ALT 29, Alkaline Phosphatase 62, Troponin I < 0.01, NT-Pro-B Natriuret Pep < 20.0, Total Protein 8.5 H, Albumin 5.4 H, Globulin 3.1, Albumin/Globulin Ratio 1.7, HCV Ab YE w/Rflx PCR Qn Reactive, HIV Ag/Ab Combo Qual Negative 11/27/24 12:17: SARS-CoV-2 (PCR) Not detected, Influenza A Untype (PCR) Not detected, Influenza Type B (PCR) Not detected Orders (Tests/Meds): ED MEDICATIONS Discontinued Medications Generic Name Dose Route Start Last Admin Trade Name Freq PRN Reason Stop Dose Admin Albuterol/Ipratropium 3 ml 11/27/24 12:04 11/27/24 12:08 Ipratropium/Albuterol 3 Ml Neb IH 11/27/24 12:05 3 ml ONCE ONE Administration ORDERS Category Date Time Status Chest XR 2 view (NOT portable) [XR chest 2V] Stat Exams 11/27/24 12:02 Completed BNP [NT Pro Brain Natriuretic Pep.] Stat Lab 11/27/24 11:48 Completed Complete Blood Count Auto Diff Stat Lab 11/27/24 11:48 Completed Comprehensive Metabolic Panel Stat Lab 11/27/24 11:48 Completed HCV RNA PCR, Quant Stat Lab 11/27/24 11:48 Received HIV Combo Stat Lab 11/27/24 11:48 Completed Hepatitis C Ab Qual. W/ RFX Stat Lab 11/27/24 11:48 Completed Rapid PCR Covid and Flu A/B Stat Lab 11/27/24 12:17 Completed Trop I [Troponin I] Stat Lab 11/27/24 11:48 Completed Medical Decision Narrative: In summary patient is a 34-year-old female who presents to the emergency department for evaluation of an asthma exacerbation. Patient reportedly taking an inhaler that she thought was for acute asthma however she brought the inhaler that she had been using which was fluticasone. Patient states that she has had them for quite some time and had another 1 but did not know the name of it. patient is initially normotensive at 159/107 tachycardic at 125 but sinus tachycardia on the bedside monitor breathing 20 times a minute satting at 100% room air upon arrival, febrile at 98.4. Physical exam reveals an expiratory wheezes in all 4 dominguez with increased work of breathing but no actual accessory muscle use. Heart sounds are normal patient has no dependent edema noted.. Differential diagnosis includes asthma exacerbation versus viral bacterial pneumonia. Initial workup will be conducted with hematologic labs respiratory swab plain film chest x-ray twelve-lead EKG. Initial interventions include DuoNeb Decadron continuous cardiac monitoring and pulse oximetry. Initial workup reviewed by me shows that her hematologic labs are significant for white count of 13 with absolute neutrophil count of 10.4 potassium 3.4 CO2 of 21 gap of 18 glucose 125 initial troponin of less than 0.01 NT proBNP of 20 her COVID and flu swabs are negative and my informal interpretation of her plain film chest x-ray shows No acute process. Upon repeat evaluation patient's heart rate did come down to 109 at the time my exam at the bedside blood pressure was 137/81 patient had no more increased work of breathing and her breath sounds were clear and patient subjectively felt significantly better. Given this patient is appropriate for discharge with a prescription for prednisone and new prescription of albuterol inhaler prescription for doxycycline and referred to pulmonology for ongoing management care for asthma. I was consulted by the COLEMAN, and we discussed the complexity of the problems being addressed. I approved the treatment and management plan for this patient's care in the Emergency Department, thus performing a substantive portion of the medical decision making. Jun May MD Critical Care <ESTIVEN Vizcaino - Last Filed: 11/27/24 20:47> Critical Care Time Critical Care Time: No
[2024-11-27 12:13] LABS: Alanine Aminotransferase 29 U/L (12-78); Albumin/Globulin Ratio 1.7 (1.1-1.8); Alkaline Phosphatase 62 U/L (38-126); Anion Gap 18.4 mEq/L (5-15); Aspartate Amino Transferase 35 U/L (14-36); Bilirubin,Total 0.5 mg/dl (0.2-1.3); Blood Urea Nitrogen 12 mg/dl (7-17); Carbon Dioxide 21 mmol/L (22.0-30.0); Creatinine Clearance Estimated 146 mL/min (50-200); Estimated Glomerular Filt Rate 97 ml/min (>60); GFR (African American) 117 ML/MIN (>60); Globulin 3.1 g/dL (1.3-3.2); Total Protein,Serum 8.5 g/dl (6.3-8.2)
[2024-11-27 12:14] LABS: Glucose 125 mg/dl (74-100)
--- NOTE | 2024-11-27 12:19 | PC.NURSE ---
Flu, COVID swab obtained.
[2024-11-27 12:20] LABS: Coronavirus 19, PCR Not Detected (NotDetected); Influenza A, PCR Not Detected (NotDetected); Influenza B, PCR Not Detected (NotDetected)
--- NOTE | 2024-11-27 12:20 | PC.NURSE ---
Radha just completed.
[2024-11-27 12:23] LABS: NT Pro Brain Natriuretic Pep. < 20.0 pg/mL (0-125)
[2024-11-27 12:26] LABS: Troponin I < 0.01 ng/ml (0.00-0.034)
[2024-11-27 12:30] VITALS: PULSE 123; RESP 19; O2SAT 100
[2024-11-27 13:21] LABS: Hepatitis C Ab Qual. W/ RFX REACTIVE (Negative)
[2024-11-27 13:26] VITALS: PULSE 109
[2024-11-27 13:27] LABS: HIV Combo NEGATIVE (Negative)
[2024-11-27 13:31] VITALS: BP 137/91; PULSE 110; RESP 18; TEMP 36.8; O2SAT 99
== END 2024-11-27 13:38 | disposition home or self-care (01) ==
PROVIDERS: Emergency Provider Emergency Medicine; PCP Physician Assistant
DX: J45.21 Mild intermittent asthma with (acute) exacerbation (principal); R06.02 Shortness of breath; R06.00 Dyspnea, unspecified; R07.9 Chest pain, unspecified; F17.210 Nicotine dependence, cigarettes, uncomplicated
CPT/HCPCS: 71046; 80053; 83880; 84484; 85025; 86803; 87389; 87522; 87636; 93005; 99284; J7620

== ENCOUNTER 2024-12-15 10:27 | Outpatient (CLI) | payer MEDICAID, SELFPAY ==
[2024-12-15 19:11] LABS: RPR W/RFX Titers Nonreactive (Nonreactive)
[2024-12-16 06:09] LABS: Hepatitis B Surface Antigen Negative (Negative)
== END 2024-12-15 23:59 | disposition home or self-care (01) ==
LOC: LAB 10:28
PROVIDERS: PCP Physician Assistant; Visit Provider Obstetrics & Gynecology
DX: Z20.2 Contact with and (suspected) exposure to infections with a predominantly sexual mode of transmission (principal)
CPT/HCPCS: 36415; 86592; 87340

== ENCOUNTER 2025-01-16 11:01 | Outpatient (CLI) | payer MEDICAID, SELFPAY ==
[2025-01-16 11:41] LABS: Basophils # 0.1 K/mm3 (0-0.2); Basophils % 0.4 % (0.1-2.0); Eosinophils # 0.2 K/mm3 (0.0-0.4); Eosinophils % 1.7 % (0.1-12.0); Hematocrit 43.5 % (37.0-47.0); Hemoglobin 14.5 g/dL (12.2-16.2); Lymphocytes # 3.4 K/mm3 (0.7-4.5); Lymphocytes % 29.9 % (10-50); Mean Corpuscular HGB Conc 33.3 g/dL (31.8-35.4); Mean Corpuscular Hemoglobin 29.2 pg (27.0-31.2); Mean Corpuscular Volume 87.5 fl (81-99); Mean Platelet Volume 9.3 fl (7.4-10.4); Monocytes # 0.5 K/mm3 (0.1-1.0); Monocytes % 4.4 % (1.7-9.3); Neutrophils # 7.2 K/mm3 (1.8-7.8); Neutrophils % 62.7 % (37.0-80.0); Platelet Count 234 K/mm3 (142-424); Red Blood Count 4.97 M/mm3 (4.20-5.40); Red Cell Distribution Width 13.1 % (11.5-17.5); White Blood Count 11.5 K/mm3 (4.8-10.8)
[2025-01-16 12:05] LABS: Alanine Aminotransferase 40 U/L (12-78); Albumin Level 4.3 g/dl (3.5-5.0); Alkaline Phosphatase 46 U/L (38-126); Anion Gap 9.1 mEq/L (5-15); Aspartate Amino Transferase 23 U/L (14-36); Bilirubin,Total 0.4 mg/dl (0.2-1.3); Blood Urea Nitrogen 15 mg/dl (7-17); Calcium 9.4 mg/dl (8.4-10.2); Carbon Dioxide 25 mmol/L (22.0-30.0); Chloride 107 mmol/L (98-107); Chol/HDL Ratio 4.9 (1-3.5); Cholesterol 167 mg/dl (140-200); Estimated Glomerular Filt Rate 97 ml/min (>60); GFR (African American) 117 ML/MIN (>60); Globulin 2.2 g/dL (1.3-3.2); Glucose 119 mg/dl (74-100); HDL Cholesterol 34 mg/dl (40-60); Potassium 4.1 mmoL/L (3.5-5.1); Sodium 137 mmol/L (136-145); Total Protein,Serum 6.5 g/dl (6.3-8.2); Triglycerides 314 mg/dl (30-150); VLDL Cholesterol 63 mg/dL (0-40)
[2025-01-16 12:07] LABS: Hemoglobin A1C 5.1 % (4.0-6.0)
[2025-01-16 12:16] LABS: Direct LDL Cholesterol 91.88 mg/dL (100-129)
[2025-01-16 12:21] LABS: 25-OH Vitamin D, Total 51.9 ng/mL (30-100); Free T4 (Free Thyroxine) 0.72 ng/dl (0.78-2.19)
[2025-01-16 12:36] LABS: Thyroid Stimulating Hormone 0.99 uIU/mL (0.465-4.68)
[2025-01-16 12:55] LABS: Vitamin B12 316 pg/mL (239-931)
[2025-01-16 13:17] LABS: Folate 6.73 ng/mL
[2025-01-17 08:20] LABS: Thyroid Peroxidase Antibodies 11 IU/mL (0-34); Triiodothyronine (T3) Free 3.1 pg/mL (2.0-4.4)
[2025-01-26 11:12] LABS: Triiodothyronine (T3) Reverse 11.8 ng/dL (9.2-24.1)
== END 2025-01-16 23:59 | disposition home or self-care (01) ==
LOC: LAB 11:02
PROVIDERS: PCP Physician Assistant; Visit Provider Physician Assistant
DX: Z13.1 Encounter for screening for diabetes mellitus (principal); Z13.220 Encounter for screening for lipoid disorders; Z13.29 Encounter for screening for other suspected endocrine disorder; Z13.21 Encounter for screening for nutritional disorder; E56.9 Vitamin deficiency, unspecified; Z68.30 Body mass index [BMI] 30.0-30.9, adult; E66.9 Obesity, unspecified
CPT/HCPCS: 36415; 80053; 80061; 82306; 82607; 82746; 83036; 84439; 84443; 84481; 84482; 85025; 86376

== ENCOUNTER 2025-02-09 13:34 | Outpatient (CLI) | payer MEDICAID, SELFPAY ==
[2025-02-09 14:50] LABS: Basophils # 0.1 K/mm3 (0-0.2); Basophils % 0.6 % (0.1-2.0); Eosinophils # 0.2 K/mm3 (0.0-0.4); Eosinophils % 1.4 % (0.1-12.0); Hematocrit 43.7 % (37.0-47.0); Hemoglobin 14.4 g/dL (12.2-16.2); Lymphocytes # 2.6 K/mm3 (0.7-4.5); Lymphocytes % 24.3 % (10-50); Mean Corpuscular Hemoglobin 29.3 pg (27.0-31.2); Mean Corpuscular Volume 88.8 fl (81-99); Mean Platelet Volume 9.2 fl (7.4-10.4); Monocytes # 0.7 K/mm3 (0.1-1.0); Monocytes % 6.5 % (1.7-9.3); Neutrophils # 7.1 K/mm3 (1.8-7.8); Neutrophils % 66.5 % (37.0-80.0); Platelet Count 274 K/mm3 (142-424); Red Blood Count 4.92 M/mm3 (4.20-5.40); Red Cell Distribution Width 13.2 % (11.5-17.5); White Blood Count 10.7 K/mm3 (4.8-10.8)
[2025-02-09 15:42] LABS: 25-OH Vitamin D, Total 56.2 ng/mL (30-100)
[2025-02-09 15:46] LABS: Free T4 (Free Thyroxine) 0.93 ng/dl (0.78-2.19)
[2025-02-09 17:05] LABS: Alanine Aminotransferase 16 U/L (12-78); Albumin Level 4.3 g/dl (3.5-5.0); Albumin/Globulin Ratio 1.5 (1.1-1.8); Alkaline Phosphatase 52 U/L (38-126); Anion Gap 14.4 mEq/L (5-15); Aspartate Amino Transferase 18 U/L (14-36); Bilirubin,Direct 0.3 mg/dl (0.0-0.4); Bilirubin,Indirect 0.2 mg/dL (0.0-0.9); Bilirubin,Total 0.5 mg/dl (0.2-1.3); Bilirubin,Unconjugated 0.3 mg/dL (0.0-1.1); Blood Urea Nitrogen 14 mg/dl (7-17); Calcium 9.4 mg/dl (8.4-10.2); Carbon Dioxide 25 mmol/L (22.0-30.0); Chloride 105 mmol/L (98-107); Chol/HDL Ratio 4.2 (1-3.5); Cholesterol 169 mg/dl (140-200); Estimated Glomerular Filt Rate 83 ml/min (>60); GFR (African American) 101 ML/MIN (>60); Globulin 2.8 g/dL (1.3-3.2); Glucose 65 mg/dl (74-100); HDL Cholesterol 40 mg/dl (40-60); Potassium 4.4 mmoL/L (3.5-5.1); Sodium 140 mmol/L (136-145); Total Protein,Serum 7.1 g/dl (6.3-8.2); Triglycerides 128 mg/dl (30-150); VLDL Cholesterol 26 mg/dL (0-40)
[2025-02-09 17:16] LABS: Direct LDL Cholesterol 95.17 mg/dL (100-129)
[2025-02-09 17:34] LABS: Thyroid Stimulating Hormone 0.21 uIU/mL (0.465-4.68)
[2025-02-09 17:53] LABS: Vitamin B12 346 pg/mL (239-931)
[2025-02-09 18:16] LABS: Folate 7.59 ng/mL
[2025-02-10 06:30] LABS: Cytomegalovirus (CMV) Ab, IgG <0.60 U/mL (0.00-0.59); Cytomegalovirus (CMV) Ab, IgM <30.0 AU/mL (0.0-29.9)
[2025-02-10 08:12] LABS: Thyroid Peroxidase Antibodies 13 IU/mL (0-34)
[2025-02-11 16:02] LABS: Miscellaneous Test SCANNED IMAGE
[2025-02-12 14:26] LABS: Parvovirus B19, IgG 0.2 index (0.0-0.8); Parvovirus B19, IgM 0.3 index (0.0-0.8)
[2025-02-16 02:10] LABS: A. phagocytophilum,PCR Negative (Negative); Ehrlichia sp., PCR Negative (Negative)
== END 2025-02-09 23:59 | disposition home or self-care (01) ==
PROVIDERS: PCP Physician Assistant; Visit Provider Physician Assistant
DX: R94.5 Abnormal results of liver function studies (principal); Z78.1 Physical restraint status
CPT/HCPCS: 36415; 80053; 80061; 80076; 82306; 82607; 82746; 83036; 84439; 84443; 84481; 84482; 85025; 86376; 86644; 86645; 86747; 86757; 87468; 87484

== ENCOUNTER 2025-02-25 09:05 | Outpatient (CLI) | payer MEDICAID, SELFPAY | END 2025-02-25 23:59 | disposition home or self-care (01) | LOC: LAB.DROPOF 02-26 09:46 | PROVIDERS: PCP Student in an Organized Health Care Education/Training Program; Visit Provider Student in an Organized Health Care Education/Training Program | DX: R30.0 Dysuria (principal); N39.0 Urinary tract infection, site not specified; B96.1 Klebsiella pneumoniae [K. pneumoniae] as the cause of diseases classified elsewhere | CPT/HCPCS: 87086; 87088; 87186 ==

== ENCOUNTER 2025-04-17 08:16 | Outpatient (CLI) | payer MEDICAID, SELFPAY ==
[2025-04-17] MEDS: ALBUTEROL 0.083% 2.5 MG/3 ML NEB IH (08:53)
--- NOTE | 2025-04-17 08:54 | PC.NURSE ---
PFT and 6 minute walk test completed on Pt without incident. Albuterol 0.083% given via HHN, per written protocol, Pt tolerated tx well.
--- NOTE | 2025-04-17 10:11 | US_ITS ---
FINAL REPORT CLINICAL HISTORY: GOITER COMPARISON: 05/28/2020 FINDINGS: THYROID ULTRASOUND: The right lobe of the thyroid gland measures 5.3 x 1.5 x 1.8 cm in size. Multiple nodules are once again noted in the right lobe of the thyroid gland. There is a 1.5 cm cystic and solid nodule present, a TI-RADS category 3 nodule, which has increased slightly in size since the prior exam. There is a 1.9 x 1.4 cm nodule in the right mid thyroid, larger than seen on the previous exam, solid, cystic, a TI-RADS category 3 nodule. The left lobe of the thyroid gland measures 4.8 x 1.2 x 1.7 cm in size. There are multiple small subcentimeter nodules present. There is a 1 cm in diameter, TI-RADS category 4 nodule in the mid left thyroid gland. The isthmus measures 4 mm in thickness. There is a 1.5 cm TI-RADS category 3 nodule present in the isthmus, cystic and solid in appearance. IMPRESSION: Multiple thyroid nodules are present, as described above. None of these require biopsy at this time. Suggest continued follow-up thyroid ultrasound in 12 months. Reviewed, Interpreted and Dictated by Jude Ballesteros MD Transcribed by Angela Trujillo Authenticated and . [facility]
== END 2025-04-17 23:59 | disposition home or self-care (01) ==
LOC: RT 08:17
PROVIDERS: PCP Physician Assistant; Visit Provider Internal Medicine Pulmonary Disease
DX: E04.2 Nontoxic multinodular goiter (principal); J45.909 Unspecified asthma, uncomplicated
CPT/HCPCS: 76536; 94060; 94618; 94726; 94729

== ENCOUNTER 2025-07-07 17:25 | Outpatient (CLI) | payer MEDICAID, SELFPAY | END 2025-07-07 23:59 | disposition home or self-care (01) | LOC: LAB.DROPOF 07-09 12:42 | PROVIDERS: PCP Student in an Organized Health Care Education/Training Program; Visit Provider Student in an Organized Health Care Education/Training Program | DX: N39.0 Urinary tract infection, site not specified (principal) | CPT/HCPCS: 87086 ==

== ENCOUNTER 2025-08-11 12:33 | Outpatient (CLI) | payer MEDICAID, SELFPAY ==
--- NOTE | 2025-08-11 12:40 | CT_ITS ---
FINAL REPORT TECHNIQUE: Thin section axial CT images with coronal and sagittal reformats were performed after the administration of IV contrast. This study was performed with techniques to keep radiation doses as low as reasonably achievable (ALARA). Individualized dose reduction techniques using automated exposure control or adjustment of mA and/or kV according to the patient's size were employed. CLINICAL HISTORY: LOCALIZED SWELLING, bb placed on palpable area COMPARISON: None FINDINGS: CT NECK SOFT TISSUE WITH CONTRAST: The nasopharynx, oropharynx, epiglottis, and larynx are all within normal limits. The salivary glands are unremarkable. There are bilateral thyroid nodules, and bilateral areas of calcification. Note is made of enlarged bilateral cervical nodes, greater on the right than on the left. An index node on the right side demonstrates a 16 mm node in the right submandibular region, best seen on image #42 of series 3. A marker was placed over the region of a palpable mass as directed by the patient. The marker overlies a 15 mm right thyroid nodule. The sinuses and mastoids are clear. Limited views of the lung apices are unremarkable. IMPRESSION: 1. There lies a 15 mm right thyroid nodule. 2. Enlarged bilateral cervical lymph nodes are noted, greater on the right than on the left, nonspecific but favor reactive. Reviewed, Interpreted and Dictated by Yaritza Harrington MD Transcribed by Angela Trujillo Authenticated and [facility]
[2025-08-11] MEDS: SODIUM CHLORIDE 0.9% 10ML SYR (RAD ONLY) 10 ML IV (13:05)
[2025-08-11] MEDS: IOPAMIDOL-370 (76%);100ML BOTTLE 75 ML IV (13:05)
== END 2025-08-11 23:59 | disposition home or self-care (01) ==
LOC: RAD 12:34
PROVIDERS: PCP Physician Assistant; Visit Provider Otolaryngology
DX: E04.1 Nontoxic single thyroid nodule (principal); R59.0 Localized enlarged lymph nodes
CPT/HCPCS: 70491; Q9967

== ENCOUNTER 2025-10-07 08:17 | Emergency (ER) | payer SELFPAY ==
[2025-10-07] VITALS (9 sets, daily range): BP systolic 108–160; BP diastolic 74–111; PULSE 78–127; RESP 15–20; TEMP 36.8; O2SAT 98–100; BMI 31.8
--- NOTE | 2025-10-07 08:28 | ECG_ITS ---
APPROVED REPORT Exam: Resting ECG HR:118 bpm ECG Measurements Heart Rate 118 AXES MT 178 P 68 QRSd 97 QRS 78 QT 329 T 56 QTc 399 Conclusion Sinus tachycardia Normal axis Normal intervals No Electronically signed by : Viral Mendoza, 10/07/2025 16:33:47
--- NOTE | 2025-10-07 08:39 | XR_ITS ---
FINAL REPORT CLINICAL HISTORY: Nonspecific chest pain COMPARISON: 11/27/2024 FINDINGS: PA and lateral views of the chest were obtained. The cardiac and mediastinal silhouettes are within normal limits. The lungs are clear. There is no pleural effusion or pneumothorax. No acute osseous abnormality is identified. IMPRESSION: No radiographic evidence of acute cardiac or pulmonary disease. Reviewed, Interpreted and Dictated by Yaritza Harrington MD Transcribed by Ninfa Arreaga Authenticated and [facility]
--- NOTE | 2025-10-07 08:39 | CT_ITS ---
FINAL REPORT CLINICAL HISTORY: Chest pain, radiating between shoulder blades COMPARISON: 10/09/2018 FINDINGS: Exam is limited for evaluation of pulmonary embolism due to contrast bolus timing. There is no aortic dissection or aneurysm. Heart is normal in size. There are multiple bilateral thyroid nodules. There is no thoracic lymphadenopathy. There is no pleural or pericardial effusion. There is a tiny, subpleural left lower lobe pulmonary nodule. In a patient of this age, this is likely postinflammatory. Lungs are otherwise clear. Limited imaging of the upper abdomen demonstrates gallbladder distention. There are gallstones with either mild gallbladder wall thickening or small amount of pericholecystic fluid. Acute cholecystitis not excluded. IMPRESSION: No aortic dissection. Nondiagnostic for pulmonary embolism. Distended gallbladder with gallstones and either mild gallbladder wall thickening or small amount of pericholecystic fluid. Acute cholecystitis not excluded. Reviewed, Interpreted and Dictated by Yaritza Harrington MD Transcribed by Katheryn Bates Authenticated and [facility]
--- NOTE | 2025-10-07 08:43 | ED_ITS ---
Discharge Plan Disposition Patient Disposition: Home, Self-Care Condition: Good Prescriptions Prescriptions: No Action cefdinir 300 mg capsule 300 mg PO BID Qty: 20 0RF albuterol sulfate 90 mcg/actuation HFA aerosol inhaler 1 inh inhalation Q4H PRN (Reason: shortness of breath or wheezing) Qty: 8.5 0RF albuterol sulfate [Ventolin HFA] 90 mcg/actuation HFA aerosol inhaler 2 inh inhalation Q4H PRN (Reason: shortness of breath or wheezing) Qty: 8 0RF Referrals Follow up/Referrals: jesus [Other] - See instructions Darren Hua MD [Staff Physician, General Surgery] - See instructions Carolina Marti PA [Primary Care Provider, Medical] - See instructions Activity Restrictions/Add. Instructions Additional Instructions/Restrictions: If you develop fevers, focal right upper quadrant pain, or any other new or worsening symptoms please return to the ER for further evaluation. Otherwise, I want you to call the surgery clinic with Dr. Hua and Dr. Stevens for an appointment to be seen for your gallstones. Clinical Impressions Clinical Impression: Symptomatic cholelithiasis, Elevated blood pressure reading Print Language Print Language: Divehi Discharge ED Provider: Viral Mendoza Adult HPI General Chief complaint: PAIN Stated complaint: High BP, pain between shoulder blades Time Seen by Provider: 10/07/25 08:29 Mode of Arrival: Ambulatory Source of Information: Patient Description of Symptoms (Recalled from ER Triage Doc. by RN): Pt presents for evaluation of high blood pressure and pain between her shoulder blades that she rates as a 5/10. Pt denies any injury. Pt states her BP was 160/102. She was just prescribed lisinopril and has had 1 dose. Pt had a virtual visit and was also prescribed amlodipine but has not been able to locate which pharmacy it was sent to. History of Present Illness HPI narrative: This is a 35-year-old female patient, with past medical history of tobacco abuse, thyroid nodules, and asthma, who is presenting to the emergency department today for evaluation of chest pain. 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 She states that her pressure has been elevated to 140/90 for the last couple of days. She was able to find a laboratory animal caretaker doctor online who prescribed her 5 mg of amlodipine daily as well as 10 mg of lisinopril in the event of breakthrough hypertension. There has been apparent trouble with transmitting this medication to the pharmacy and she has been unable to take this medication. This morning her blood pressure was elevated to 160/100 and she began experiencing significant pain in her back. She states that this pain is situated in between her shoulder blades and is quite significant in nature. The pain does not radiate into the anterior chest, neck, arms, or jaw. She is not experiencing shortness of breath. She has had no lower extremity erythema or edema. Related Data Previous Rx's ?Medication ?Instructions ?Recorded Ventolin HFA 90 mcg/actuation 2 inh inhalation Q4H PRN shortness 11/27/24 aerosol inhaler (albuterol sulfate) of breath or wheez ing #8 grams albuterol sulfate 90 mcg/actuation 1 inh inhalation Q4 H PRN shortness 11/27/24 aerosol inhaler of breath or wheezing #8.5 g eric cefdinir 300 mg capsule 300 mg PO BID #20 caps 07/07 Allergies Allergy/AdvReac Type Severity Reaction Status Date / Time codeine Allergy Verified 07/07/25 17:17 gluten Allergy Verified 07/07/25 17:17 milk Allergy Verified 07/07/25 17:17 [facility] Disclaimer: The information contained in this section may have been updated after the patient was seen, as this information can be updated by other users. Medical History Asthma Possible exposure to STD Vaginal odor Vaginal Discharge Skin lesion of breast Ovarian cyst MTHFR gene mutation PCOS (polycystic ovarian syndrome) History of PCOS History of hypothyroidism Surgical History H/O dilation and curettage History of hysteroscopy History of wisdom tooth extraction Postcesarean section Family History Other Family history of cancer Family history of diabetes mellitus Family history of hypertension Social History Smoking Status: Current every day smoker tobacco type: cigarettes packs per day: 1 second hand exposure: No alcohol intake: never substance use type: denies use current occupational status: employed and unemployed Travel in the last 8 weeks?: None household members: significant other and family housing: house number of children: 1 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 current occupational exposures/hazards: No caffeine: Yes Have you lived/traveled outside [place] in past 30 days?: No Contact w/someone who lives/traveled outside US past 30 days?: No Exposure to someone with infectious disease in past 14 days?: No Do you have a fever (greater than 100.4 F or 38 C)?: No Have you tested positive for COVID-19?: No Exposed to someone with COVID-19 in past 14 days?: No Do you have a sore throat?: No Do you have a cough?: No Do you have any weakness?: No Do you have any diarrhea?: No Are you experiencing any unusual bleeding?: No Do you have any muscle aches/pain?: No Do you have any abdominal pain?: No Are you experiencing loss of taste or smell?: No Other Medical History Have you received the Flu Vaccine for this season: No Have you received the Pneumonia Vaccine: No ROS Obtained: Yes Systems reviewed as appropriate & no additional complaints except as documented Physical Exam General General appearance: other (See MDM) Respiratory Respiratory exam: Present other (See MDM) Cardiovascular Cardiovascular exam: Present other (See MDM) Neurological Exam Neurological exam: Present other (See MDM) Medical Decision Making Medical Records Medical records reviewed: Yes I reviewed the patient's medical records. Screening: Per USPSTF and CDC recommendations, given the prevalence of disease in our region, it is our hospital?s policy to screen for HIV and viral Hepatitis for all patients aged 18 and over and those with ongoing risk factors. Umer Inquiry Pt receiving controlled substance: No Umer was queried for this patient: No Vital Signs: 10/07/25 08:28 10/07/25 09:15 10/07/25 10:00 Temperature 98.3 F Temperature Source Oral Pulse Rate 111 H 99 H Pulse Rate [Right] 127 H Respiratory Rate 18 18 18 Blood Pressure 125/96 H 123/92 H Blood Pressure [Right Arm] 160/111 H Blood Pressure Mean 105 100 Blood Pressure Mean [Right Arm] 127 Blood Pressure Source [Right Arm] Automatic Cuff Blood Pressure Position [Right Arm] Sitting 02 Sat by Pulse Oximetry 99 98 98 Oxygen Delivery Method Room Air 10/07/25 10:15 10/07/25 10:30 10/07/25 10:45 Temperature Temperature Source Pulse Rate 90 93 H 93 H Pulse Rate [Right] Respiratory Rate 18 18 20 Blood Pressure 108/74 L 117/79 126/91 H Blood Pressure [Right Arm] Blood Pressure Mean Blood Pressure Mean [Right Arm] Blood Pressure Source [Right Arm] Blood Pressure Position [Right Arm] 02 Sat by Pulse Oximetry 98 99 98 Oxygen Delivery Method Room Air Room Air 10/07/25 11:00 10/07/25 11:15 Temperature Temperature Source Pulse Rate 92 H 90 Pulse Rate [Right] Respiratory Rate 15 20 Blood Pressure 112/79 121/74 Blood Pressure [Right Arm] Blood Pressure Mean Blood Pressure Mean [Right Arm] Blood Pressure Source [Right Arm] Blood Pressure Position [Right Arm] 02 Sat by Pulse Oximetry 98 100 Oxygen Delivery Method Lab Data Lab Results 10/07/25 08:42: WBC 8.7, RBC 5.01, Hgb 14.7, Hct 43.1, MCV 86.0, MCH 29.3, MCHC 34.1, RDW 12.6, Plt Count 219, MPV 9.4, Neut % (Auto) 72.2, Lymph % (Auto) 17.5, [place] % (Auto) 7.7, Eos % (Auto) 1.9, Baso % (Auto) 0.5, Neut # (Auto) 6.3, Lymph # (Auto) 1.5, [place] # (Auto) 0.7, Eos # (Auto) 0.2, Baso # (Auto) 0.0, Sodium 140, Potassium 3.9, Chloride 104, Carbon Dioxide 23, Anion Gap 16.9 H, BUN 14, Creatinine 0.80, Estimated Creat Clear 129, Estimated GFR 83, Est GFR ( Amer) 100, Glucose 106 H, Calcium 8.9, Total Bilirubin 0.7, AST 24, ALT 21, Alkaline Phosphatase 48, Troponin I < 0.01, Total Protein 8.1, Albumin 4.8, G lobulin 3.3 H, Albumin/Globulin Ratio 1.5, Lipase 149, TSH 1.17, Free T4 1.04 10/07/25 08:47: Urine HCG, Qual Negative 10/07/25 11:55: Troponin I < 0.01 10/07/25 08:42 10/07/25 08:42 Orders (Tests/Meds): ED MEDICATIONS Discontinued Medications Generic Name Dose Route Start Last Admin Trade Name Edwin PRN Reason Stop Dose Admin Aspirin 325 mg 10/07/25 08:39 10/07/25 08:52 Aspirin 325mg Tablet PO 10/07/25 08:40 325 mg ONCE ONE Administration Iopamidol 80 ml 10/07/25 09:37 10/07/25 09:38 Iopamidol-370 (76%);100ml Bottle IV 10/07/25 09:38 80 ml ONCE ONE Administration Morphine Sulfate 4 mg 10/07/25 08:39 10/07/25 08:53 Morphine 4mg/Ml Syringe IV 10/07/25 08:40 4 mg ONCE ONE Administration Ondansetron HCl 4 mg 10/07/25 08:39 10/07/25 08:53 Ondansetron 4mg/2ml Vial IV 10/07/25 08:40 4 mg ONCE ONE Administration Sodium Chloride 10 ml 10/07/25 09:37 10/07/25 09:38 Sodium Chloride 0.9% 10ml Syr (Rad Only) IV 10/07/25 09:38 10 ml ONCE ONE Administration Sodium Chloride 50 ml 10/07/25 09:37 10/07/25 09:38 0.9 % Sodium Chloride 50 Ml Vial IV 10/07/25 09:38 50 ml ONCE ONE Administration ORDERS Category Date Time Status CT angio chest - dissection Stat Cat Scan 10/07/25 08:39 Completed CXR 2 view (NOT portable) [XR chest 2V] Stat Exams 10/07/25 08:39 Completed POCUS Point of Care (ER Only) Stat Exams 10/07/25 10:37 Completed US gallbladder Stat Exams 10/07/25 11:20 Completed CBC w/Auto Diff [Complete Blood Count Auto Diff] Stat Lab 10/07/25 08:42 Completed CMP [Comprehensive Metabolic Panel] Stat Lab 10/07/25 08:42 Completed Free T4 (Free Thyroxine) Stat Lab 10/07/25 08:42 Completed Lipase Stat Lab 10/07/25 08:42 Completed TSH [Thyroid Stimulating Hormone] Stat Lab 10/07/25 08:42 Completed Troponin I Q3H Lab 10/07/25 11:55 Completed Troponin I Q3H Lab 10/07/25 14:45 Ordered Troponin I Stat Lab 10/07/25 08:42 Completed Urine , HCG Qual. Stat Lab 10/07/25 08:47 Completed Medical Decision Narrative: In summary, this is a 35-year-old female patient who is presenting to the emergency department today for evaluation of hypertension as well as significant pain in her chest that she feels in between the shoulder blades of her back. She has had no lower extremity erythema or edema. No shortness of breath. Her comorbidities include multiple thyroid nodules, asthma, and tobacco abuse. On initial evaluation of the patient she was tachycardic and hypertensive with a pulse of 127 and blood pressure of 160/111. She is appropriately alert and oriented with a GCS of 15 and is neurologically intact. On physical examination the patient's heart and lungs are clear to auscultation bilaterally. She has no lower extremity erythema or edema. Differential diagnosis includes ACS/PR, aortic dissection, pulmonary embolism, thyrotoxicosis, electrolyte derangement, acute kidney injury, among others Initial workup included an EKG and hematologic labs. I decided to go with a CT angio of the chest as this would workup both in aortic dissection as well as large saddle embolisms, given that her pain is most concerning in the posterior chest and in between the shoulder blades of the back. EKG was obtained and personally interpreted by me and demonstrated sinus tachycardia at a rate of 118 bpm, normal axis, no LA prolongation, narrow QRS, no QTc prolongation. No ST elevation or depression. No overt signs of ischemia or arrhythmia. There is no T wave inversions in leads II, 3, or aVF Labs personally reviewed by me demonstrate no leukocytosis, no actionable anemia, no electrolyte arrangement or acute kidney injury. Troponin is less than 0.01 and delta troponin is less than 0.01 which suggest against myocardial ischemia. AST, ALT, and alk phos are within normal limits and her bilirubin is normal as well. Lipase is normal at 149. Thyroid axis is normal as well. We did proceed with a CTA of the chest which was personally turbid by me and demonstrates no evidence of aortic dissection. Official radiology read is in agreement and notes that there is no acute abnormality within the chest on this scan, however they do note that there is a thickened gallbladder with potential pericholecystic fluid. The pain that she was describing in between her shoulder blades could be coming from gallbladder pathology, however she has no right upper quadrant tenderness on exam. Following this I did perform bedside ultrasound that showed a gallstone within the gallbladder and a borderline thickened gallbladder wall. I was unable to identify the common bile duct so I decided to proceed with a formal right upper quadrant ultrasound. Formal right upper quadrant ultrasound was personally turbid by me and demonstrates a mildly thick gallbladder wall at 3.5 mm as well as a normal caliber common bile duct indicating no evidence of choledocholithiasis. There is evidence of cholelithiasis. Official radiology read is in agreement notes no pericholecystic fluid. On my examination the patient has no tenderness in the right upper quadrant. She is demonstrating no signs of sepsis, and no disruption of her LFTs. Therefore I do not feel that she is experiencing acute cholecystitis and I do not feel that she needs emergent surgery today. I do feel that she is appropriate for outpatient follow-up with the general surgery clinic for further evaluation of her symptomatic cholelithiasis. Patient symptoms have resolved. Her blood pressure has normalized. We will discharge her home for outpatient follow-up with the surgery clinic. She understands return precautions. At this time all questions been answered and all parties are agreeable with the decision to discharge. Critical Care Critical Care Time Critical Care Time: No
--- NOTE | 2025-10-07 08:49 | PC.NURSE ---
pt ambulatory to bathroom to provide urine sample.
[2025-10-07] MEDS: ASPIRIN 325MG TABLET 325 MG PO (08:52)
[2025-10-07 08:53] LABS: Hematocrit 43.1 % (37.0-47.0); Hemoglobin 14.7 g/dL (12.2-16.2); Immature Granulocytes % 0.2 %; Mean Corpuscular HGB Conc 34.1 g/dL (31.8-35.4); Mean Corpuscular Hemoglobin 29.3 pg (27.0-31.2); Mean Corpuscular Volume 86.0 fl (81-99); Nucleated Red Blood Cells % 0 %; Platelet Count 219 K/mm3 (142-424); Red Blood Count 5.01 M/mm3 (4.20-5.40); Red Cell Distribution Width-SD 39.2 fL; White Blood Count 8.7 K/mm3 (4.8-10.8)
[2025-10-07] MEDS: ONDANSETRON 4MG/2ML VIAL 4 MG IV (08:53)
[2025-10-07] MEDS: MORPHINE 4MG/ML SYRINGE 4 MG IV (08:53)
[2025-10-07 08:55] LABS: Albumin Level 4.8 g/dl (3.5-5.0); Chloride 104 mmol/L (98-107); Sodium 140 mmol/L (136-145)
[2025-10-07 08:56] LABS: Potassium 3.9 mmoL/L (3.5-5.1)
[2025-10-07 08:58] LABS: Alanine Aminotransferase 21 U/L (12-78); Alkaline Phosphatase 48 U/L (38-126); Anion Gap 16.9 mEq/L (5-15); Aspartate Amino Transferase 24 U/L (14-36); Bilirubin,Total 0.7 mg/dl (0.2-1.3); Blood Urea Nitrogen 14 mg/dl (7-17); Carbon Dioxide 23 mmol/L (22.0-30.0); Creatinine Clearance Estimated 129 mL/min (50-200); Creatinine,Serum 0.80 mg/dl (0.52-1.04); Estimated Glomerular Filt Rate 83 ml/min (>60); GFR (African American) 100 ML/MIN (>60); Lipase 149 U/L (23-300)
[2025-10-07 08:59] LABS: Albumin/Globulin Ratio 1.5 (1.1-1.8); Calcium 8.9 mg/dl (8.4-10.2); Globulin 3.3 g/dL (1.3-3.2); Glucose 106 mg/dl (74-100); Total Protein,Serum 8.1 g/dl (6.3-8.2)
[2025-10-07 09:13] LABS: Troponin I < 0.01 ng/ml (0.00-0.034)
[2025-10-07 09:16] LABS: Urine Pregnancy, HCG Qual. Negative (Negative)
[2025-10-07 09:29] LABS: Thyroid Stimulating Hormone 1.17 uIU/mL (0.465-4.68)
--- NOTE | 2025-10-07 09:37 | PC.NURSE ---
Pt returns from ct
[2025-10-07] MEDS: 0.9 % SODIUM CHLORIDE 50 ML VIAL IV (09:38)
[2025-10-07] MEDS: IOPAMIDOL-370 (76%);100ML BOTTLE 80 ML IV (09:38)
[2025-10-07] MEDS: SODIUM CHLORIDE 0.9% 10ML SYR (RAD ONLY) 10 ML IV (09:38)
[2025-10-07 10:04] LABS: Free T4 (Free Thyroxine) 1.04 ng/dl (0.78-2.19)
--- NOTE | 2025-10-07 11:20 | US_ITS ---
FINAL REPORT TECHNIQUE: Sonographic images of the right upper quadrant were obtained. CLINICAL HISTORY: Back pain, gallstones on POCUS, fluid on CT COMPARISON: None FINDINGS: PANCREAS: Unremarkable. LIVER: Homogeneous. No focal hepatic lesion. No intrahepatic biliary ductal dilatation. GALLBLADDER: Multiple gallstones are present in the gallbladder. There is distention of the gallbladder, with a thickened gallbladder wall. No pericholecystic fluid is identified. COMMON DUCT: 4 mm. Normal for age. RIGHT KIDNEY: The right kidney measures 11.4 cm. There is no hydronephrosis, mass, or stone. FREE FLUID: None. IMPRESSION: Gallstones are present in a distended and slightly thick-walled gallbladder. Cholecystitis is not excluded. Reviewed, Interpreted and Dictated by Yaritza Harrington MD Transcribed by Angela Trujillo Authenticated and [facility]
[2025-10-07 12:24] LABS: Troponin I < 0.01 ng/ml (0.00-0.034)
== END 2025-10-07 13:26 | disposition home or self-care (01) ==
PROVIDERS: Emergency Provider Student in an Organized Health Care Education/Training Program; PCP Physician Assistant
DX: R07.9 Chest pain, unspecified (principal); K80.20 Calculus of gallbladder without cholecystitis without obstruction; R03.0 Elevated blood-pressure reading, without diagnosis of hypertension; R00.0 Tachycardia, unspecified; F17.210 Nicotine dependence, cigarettes, uncomplicated
CPT/HCPCS: 71046; 71275; 76705; 80053; 81025; 83690; 84439; 84443; 84484; 85025; 93005; 96374; 96375; 99285; J2270; J2405; Q9967